=== PATIENT | female | born 1965 | race Caucasian/White ===

== ENCOUNTER → 2016-08-06 | Outpatient (CLI) | payer BC ==
[~2016-08-06] MED LIST: CHOL100010 PO; CLON0.5T3 PO; FLUT0.0529 NAE; OMEP40CA PO; WLL75 PO
--- NOTE | 2016-08-06 15:39 | DIAGNOSTIC IMAGING REPORT ---
MRI OF THE CERVICAL SPINE WITHOUT CONTRAST CLINICAL HISTORY: Severe headache. Neck pain. Cerebellar tonsillar ectopia. COMPARISON: MRI of the cervical spine September 20, 2015. TECHNIQUE: Utilizing a 1.5 Caroline magnet and dedicated coil, multiplanar, multiecho imaging of the cervical spine was performed without IV contrast. FINDINGS: Alignment of the cervical spine is anatomic. Vertebral body heights are maintained. There is no marrow replacement. There is no intracanalicular mass or fluid collection. Mild cerebellar tonsillar ectopia of 3 mm is unchanged since exam of September 20, 2015. Cervical cord signal and caliber are normal. C2-C3: Central canal and neural foramen are patent. C3-C4: There is minimal disc bulge. The central canal and the neural foramen are patent. C4-C5: There is mild disc bulge. There is minimal narrowing of the central canal. The neural foramen are patent. C5-C6: There is mild disc bulge with osteophyte. There is mild narrowing of the central canal. This is unchanged. The neural foramen are patent. C6-C7: The central canal and neural foramen are patent. C7-T1: The central canal and neural foramen are patent. IMPRESSION: 1. No change in mild cerebellar tonsillar ectopia since exam of September 20, 2015. The findings do not meet criteria for a Chiari 1 malformation. 2. Normal cervical cord signal and caliber. 3. No change in mild multilevel degenerative changes of the cervical spine. Electronically signed by: Peter Nieves M.D. 08/06/2016 3:38 PM Dictated Date/Time: 08/06/2016 3:21 PM
== END | disposition home or self-care (01) ==
LOC: C.MRIBC 14:24
PROVIDERS: ATTEND Psychiatry & Neurology Neurology
DX: M54.2 Cervicalgia (principal); M54.16 Radiculopathy, lumbar region

== ENCOUNTER → 2016-09-17 | Outpatient (CLI) | payer BC ==
[~2016-09-17] MED LIST changes: +BIOT10TA2 PO; +CHOL1000 PO; +CINN500C13 PO; +DTR/5 PO; +FLUT0.15 NAE; +HYDR25CA PO; +METH500T37 PO; +MISCCAP80 PO; +MULT-506 PO; +OMEG10007 PO; +PRLSR20 PO; +TRAM-10 PO; +azo PO
--- NOTE | 2016-09-17 09:40 | DIAGNOSTIC IMAGING REPORT ---
LEFT HAND MIN 3 VIEWS ROUTINE CLINICAL HISTORY: R76.8 Elevated antinuclear antibody (DINO) [id number] hypermobility COMPARISON: None. DISCUSSION: There is minimal periarticular osteopenia. No fractures are visualized. No bony erosions are visualized IMPRESSION: Minimal periarticular osteopenia. No fractures. No erosive changes. Electronically signed by: Jenaro Mitchell M.D. 09/17/2016 9:38 AM Dictated Date/Time: 09/17/2016 9:33 AM
--- NOTE | 2016-09-17 09:49 | DIAGNOSTIC IMAGING REPORT ---
RIGHT HAND 3 VIEWS HISTORY: R76.8 Elevated antinuclear antibody (DINO) [id number] Hypermobil Right COMPARISON: None. FINDINGS: Minimal periarticular osteopenia. No erosions identified. No fracture or dislocation. Cartilage spaces are maintained for age. Soft tissues are unremarkable. No radiopaque foreign bodies. IMPRESSION: Minimal periarticular osteopenia. No erosions. Electronically signed by: Ramses Jordan M.D. 09/17/2016 9:48 AM Dictated Date/Time: 09/17/2016 9:47 AM
== END | disposition home or self-care (01) ==
LOC: C.RAD1850 09:17
PROVIDERS: ATTEND Internal Medicine Rheumatology
DX: I73.00 Raynaud's syndrome without gangrene (principal); M25.50 Pain in unspecified joint; R76.8 Other specified abnormal immunological findings in serum

== ENCOUNTER → 2016-10-02 | Outpatient (CLI) | payer BC | END | disposition home or self-care (01) | LOC: C.LABSPEC 15:27 | PROVIDERS: ATTEND Nurse Practitioner Family | DX: R30.0 Dysuria (principal) ==

== ENCOUNTER → 2016-10-28 | Outpatient (CLI) | payer BC | END | disposition home or self-care (01) | LOC: C.LABSPEC 16:59 | PROVIDERS: ATTEND Urology | DX: N39.0 Urinary tract infection, site not specified (principal) ==

== ENCOUNTER → 2016-11-14 | Outpatient (CLI) | payer BC ==
[~2016-11-14] MED LIST changes: -BIOT10TA2 PO; -CHOL1000 PO; -CINN500C13 PO; -DTR/5 PO; -FLUT0.15 NAE; -HYDR25CA PO; -METH500T37 PO; -MISCCAP80 PO; -MULT-506 PO; -OMEG10007 PO; -PRLSR20 PO; -TRAM-10 PO; -azo PO
[2016-11-14 10:05] LABS: PFT COL EPI 82 SECONDS (80-184)
== END | disposition home or self-care (01) ==
LOC: C.LAB 08:55
DX: D68.9 Coagulation defect, unspecified (principal); E83.52 Hypercalcemia

== ENCOUNTER → 2016-11-28 | Outpatient (CLI) | payer BC ==
--- NOTE | 2016-11-28 12:17 | MAMMOGRAPHY REPORT ---
BILATERAL DIGITAL SCREENING MAMMOGRAM TOMOSYNTHESIS WITH CAD: 11/28/2016 CLINICAL HISTORY: Routine screening. TECHNIQUE: Bilateral breast tomosynthesis in addition to standard 2D mammography was performed. Curre nt study was also evaluated with a Computer Aided Detection (CAD) system. COMPARISON: Comparison is made to exams dated: 11/27/2015 mammogram, 11/24/2014 mammogram, 11/18/2013 m ammogram, 11/16/2012 mammogram, 11/03/2011 mammogram, and 10/28/2010 mammogram - [facility]. BREAST COMPOSITION: The tissue of both breasts is heterogeneously dense, which may obscure small mas ses. FINDINGS: There is an asymmetry in the far superior right breast on the MLO view that does not defin itely have masslike features on the corresponding tomosynthesis images. However, additional spot com pression tomosynthesis views and possibly ultrasound are recommended. There are diffuse bilateral benign-appearing round and punctate microcalcifications. No other suspic ious mass, architectural distortion or cluster of microcalcifications is seen. IMPRESSION: ACR BI-RADS CATEGORY 0: INCOMPLETE EVALUATION: NEED ADDITIONAL IMAGING EVALUATION The asymmetry in the far superior right breast on the MLO view needs additional evaluation. The patient will be called to schedule an appointment. Approximately 10% of breast cancers are not detected with mammography. A negative mammographic report should not delay biopsy if a clinically suggestive mass is present. Raina Figueredo M.D. ay/:11/28/2016 10:29:11 Photoresist Contact Printer: Melanie KISER(R)(M), [facility] letter sent: Addl Imaging 0 BI-RADS Code: ACR BI-RADS Category 0: Incomplete Evaluation: Need Additional Imaging Evaluation
== END | disposition home or self-care (01) ==
LOC: C.MAMM 09:03
PROVIDERS: ATTEND Obstetrics & Gynecology
DX: Z12.31 Encounter for screening mammogram for malignant neoplasm of breast (principal); R92.8 Other abnormal and inconclusive findings on diagnostic imaging of breast

== ENCOUNTER → 2016-12-09 | Outpatient (CLI) | payer BC ==
--- NOTE | 2016-12-09 13:08 | MAMMOGRAPHY REPORT ---
UNILATERAL RIGHT DIGITAL DIAGNOSTIC MAMMOGRAM TOMOSYNTHESIS AND TARGETED RIGHT ULTRASOUND: 12/09/2016 CLINICAL HISTORY: 50-year-old woman called back from screening mammography for nodular asymmetry in t he superior right breast on the MLO view. Family history of breast cancer = mother. TECHNIQUE: Spot compression right MLO 2-D and tomosynthesis, right exaggerated lateral CC 2-D and abebe osynthesis images were obtained. COMPARISON: Comparison is made to exams dated: 11/28/2016 mammogram, 11/27/2015 mammogram, 11/24/2014 m ammogram, 11/18/2013 mammogram, 11/16/2012 mammogram, and 11/03/2011 mammogram - [facility]ter. BREAST COMPOSITION: The tissue of the right breast is heterogeneously dense, which may obscure small masses. FINDINGS: There is effacement of the nodularity in the superior right breast on the spot compression MLO view. No corresponding mass or architectural distortion on the tomosynthesis images. The parenc hymal pattern on the 2-D overlay view is very similar to multiple prior mammograms including the 2014 , 2011 and 2010 mammograms, suggesting normal overlapping tissue. No suspicious mass or focal area o f architectural distortion is seen on the exaggerated lateral right CC view. Further evaluation with ultrasound was performed. Targeted ultrasound was performed in the superior right breast. Incidental note is made of 2 benign simple cysts. The first in the 12:00 right breast, 1 cm from the nipple measures 2.6 x 3.3 x 2.7 mm. The second in the 10:00 periareolar right breast measures 5.6 x 6.2 x 4.0 mm. No suspicious solid mass is identified. A morphologically normal lymph node is seen in the 10:00 right breast, 5 cm from the nipple, correlating with a stable mammographic mass. IMPRESSION: ACR BI-RADS CATEGORY 2: BENIGN, TARGETED ULTRASOUND ACR BI-RADS CATEGORY 2: BENIGN Effacement of the nodularity in the superior right breast on the MLO view, and no suspicious sonograp hic correlate. Incidental note is made of 2 simple cysts and a benign lymph node visualized in the s uperior right breast on ultrasound. There is no mammographic or targeted sonographic evidence of mal ignancy. Return to annual mammogram screening schedule is recommended. The patient has been verball y notified of the results. Approximately 10% of breast cancers are not detected with mammography. A negative mammographic report should not delay biopsy if a clinically suggestive mass is present. Raina Figueredo M.D. ay/:12/09/2016 11:31:41 [employer]borne Mission Systems Superintendent: Nora QUINTANILLA)(Rui), [facility] letter sent: Normal 1/2 BI-RADS Code: ACR BI-RADS Category 2: Benign Ultrasound BI-RADS: ACR BI-RADS Category 2: Benign
== END | disposition home or self-care (01) ==
LOC: C.MAMM 09:21
PROVIDERS: ATTEND Obstetrics & Gynecology
DX: R92.8 Other abnormal and inconclusive findings on diagnostic imaging of breast (principal); N64.89 Other specified disorders of breast

== ENCOUNTER → 2017-02-09 | Outpatient (CLI) | payer BC | END | disposition home or self-care (01) | LOC: C.LABSPEC 17:08 | PROVIDERS: ATTEND Urology | DX: R39.9 Unspecified symptoms and signs involving the genitourinary system (principal); R35.0 Frequency of micturition ==

== ENCOUNTER → 2017-02-11 | Outpatient (CLI) | payer BC | END | disposition home or self-care (01) | LOC: C.LAB 16:54 | PROVIDERS: ATTEND Nurse Practitioner Adult Health | DX: N39.0 Urinary tract infection, site not specified (principal); R35.0 Frequency of micturition ==

== ENCOUNTER 2017-03-10 05:18 | Inpatient (IN) | payer BC ==
--- NOTE | 2017-02-26 10:18 | PAT Medication Instructions ---
Service Date Feb 26, 2017. Current Home Medication List Biotin (Biotin), 100 MG PO QAM Bupropion HCl (Bupropion HCl), 100 MG PO BID Cholecalciferol (Vitamin D3), 1 TAB PO BID Cinnamon (Cinnamon Extract), 2 CAP PO QAM Clonazepam (Klonopin), 2 TAB PO HS Clonazepam (Klonopin), 0.5 TAB PO NOON Fish Oil (Austin-3), 1 CAP PO BID Fluticasone Propionate (Nasal) (Flonase Allergy Relief), 1 DOSE JUAN CARLOS UD PRN for SINUS CONGESTION Hydroxyzine Pamoate (Vistaril), 1 CAP PO HS Methocarbamol (Robaxin), 500 MG PO UD PRN for Pain Multivitamin (Multivitamin), 1 TAB PO QAM Omeprazole (Prilosec), 40 MG PO QAM Oxybutynin Chloride (Ditropan), 5 MG PO HS Tramadol (Ultram), 50 MG PO UD PRN for PAIN/MIGRAINES Medication Instructions For Your Scheduled Surgery - Hold the following medications starting tomorrow (02/27): Cinnamon (Cinnamon Extract), 2 CAP PO QAM Fish Oil (Austin-3), 1 CAP PO BID - Hold the following medications the morning of surgery: Multivitamin (Multivitamin), 1 TAB PO QAM Biotin (Biotin), 100 MG PO QAM Cholecalciferol (Vitamin D3), 1 TAB PO BID Methocarbamol (Robaxin), 500 MG PO UD PRN for Pain - Take the following medications the morning of surgery with a sip of water: Tramadol (Ultram), 50 MG PO UD PRN for PAIN/MIGRAINES(if needed) Fluticasone Propionate (Nasal) (Flonase Allergy Relief), 1 DOSE JUAN CARLOS UD PRN for SINUS CONGESTION (if needed) Clonazepam (Klonopin), 0.5 TAB PO NOON Bupropion HCl (Bupropion HCl), 100 MG PO BID Omeprazole (Prilosec), 40 MG PO QAM - Take the following medications as scheduled the night before surgery: Tramadol (Ultram), 50 MG PO UD PRN for PAIN/MIGRAINES (if needed) Oxybutynin Chloride (Ditropan), 5 MG PO HS Clonazepam (Klonopin), 2 TAB PO HS Fluticasone Propionate (Nasal) (Flonase Allergy Relief), 1 DOSE JUAN CARLOS UD PRN for SINUS CONGESTION (if needed) Bupropion HCl (Bupropion HCl), 100 MG PO BID Hydroxyzine Pamoate (Vistaril), 1 CAP PO HS Methocarbamol (Robaxin), 500 MG PO UD PRN for Pain (if needed) Cholecalciferol (Vitamin D3), 1 TAB PO BID If you have any questions please call us at [phone] or [phone] or [phone]
[2017-02-26 11:22] LABS: BASO % 0.8 %; BASO ABS # 0.03 K/uL (0-0.2); COMPLETE YES; EOS % 2.3 %; HEMATOCRIT 39.3 % (37-47); IG% 0.3 %; LYMPH % 39.9 %; LYMPH ABS # 1.58 K/uL (1.2-3.4); MEAN CELL VOLUME 87.3 fL (80-100); MEAN CORPUSCULAR HEMOGLOBIN 28.9 pg (25-34); MEAN CORPUSCULAR HGB CONC 33.1 g/dl (32-36); MEAN PLATELET VOLUME 10.8 fL (7.4-10.4); MONO % 7.8 %; NEUT % 48.9 %; PLATELET COUNT 296 K/uL (130-400); WHITE BLOOD COUNT 3.96 K/uL (4.8-10.8)
[2017-02-26 11:32] LABS: PROTHROMBIN TIME (PATIENT) 10.8 SECONDS (9.0-12.0)
--- NOTE | 2017-03-02 13:53 | HISTORY & PHYSICAL EXAMINATION ---
DATE OF ADMISSION: 03/10/2017 HISTORY OF PRESENT ILLNESS: Ely is a 51-year-old white female who stands 5 feet 7 inches tall and weighs 130 pounds. Ely was referred to my office a number of years ago to treat a rather significant dental facial abnormality. She has a class 2 deep bite. As a result of this, her lower teeth were impinging into the palate. She had a great deal of difficulty with eating and chewing because of the mouth positioning of the teeth. She constantly bit her lips and the mucosal tissue of her cheeks and tongue. She sought an orthodontic opinion and went to Dr. Dragan Kong an envelope sealing machine operator in [place] for evaluation. Dr. Kong noted right away that this is a skeletal dental alveolar problem and told Ely that in order to correct her problem she will need a combination of orthodontics and orthognathic surgery. It is at this time that she is ready for the orthognathic surgical procedure. Dr. Kong set her teeth into a very nice relationship. He leveled and aligned the teeth, made the appropriate spaces, opened the bite up orthodontically to allow me to perform a bilateral sagittal split osteotomy to advance the mandible approximately 7 mm to gain a very nice class 1 dental occlusion. This will greatly help her malocclusion and get rid of the deep bite and the inability for her to eat and chew foods properly. I reviewed with Ely all the risks and complications of the surgical procedure which include but are not limited to the following; pain, swelling, infection, bleeding, reaction to the metal screws and plates that will be used for the surgical procedures, bleeding, paresthesia to the inferior alveolar nerve that could be permanent or transient, the need to remove the screws in the future if they are causing a reaction, pain and discomfort in the temporomandibular joint secondary to the stretching of the ligaments due to the advancement surgery. She understands the surgery will be performed at the [facility] in the operating room and then she will spend the first night in the intensive care unit. Depending on how she does, she may be discharged the following morning or later that afternoon. She understands she must maintain proper oral hygiene care and need to follow up with both me and the envelope sealing machine operator. She also understands that after the surgery in about 6 weeks, she will return to the envelope sealing machine operator where follow up orthodontic care will be rendered. She also understands that she will need a sinus elevation and implant placement in tooth #14 area sometime in the future once the orthodontics is complete. Overall, I find Ely to be a very inquisitive lady who is very interested in the treatment that she is going to undergo. I spent a great deal of time with her reviewing each of her questions and we also had spent a great deal of time making sure that the metals that we are going to be using such as the titanium screws and the future titanium implants will not cause any reaction. I have worked with her marine steam fitter and they have developed skin testing and to the best of our knowledge based upon the skin testing, the metals that we are going to implanting in her bones will not cause a reaction. She does not have any allergic reactions to these particular metals. With that said, we have scheduled surgery for the February at [facility] under general anesthesia. She does understand all the risks and complications of the surgery and the potential reactions that could occur. She has had a great deal of time to discuss this with me via phone, email and personal. She has signed the consent form and I gave her a copy of the consent form for her own use. We have reports from her marine steam fitter stating the fact that the metals were deep tested and according to their testing she does not seem to have any reaction to the titanium alloy metal that we will be using in both the implant as well as the orthognathic surgical screws. We will obviously avoid all other metallic implantable material that could cause reactions. The patient had a great deal of time to think about the surgery and read the risks, complications plus she has done extensive research in reading the internet and asking questions to many patients. I feel she is well educated and has a good understanding of the need for the surgery and the expected outcome. I feel that she is a very well informed patient. It is at this time that I am clearing her medically to undergo the orthognathic surgical procedure. PAST MEDICAL HISTORY: Essentially noncontributory. She gives no history of any type of significant heart problems but she does have at time some palpitations and was told that she has high cholesterol. She does state that she has low blood pressure and obviously we will be aware of this during the surgery. The patient gives no history of any type of lung problems and as a matter of fact has good expansion of the lungs with bilateral clear respiratory sounds. The patient has had an echocardiogram at [facility] in the past, she has had stress test with [facility]'s in the past and she has had multiple EKGs, all of them again show her bradycardia, but nothing of any significance. The patient states that she does have some dyspnea on exertion on running, walking up hills, or mowing or shoveling snow and she is not sure if this is just due to under conditioning or actually cardiac problems. Based upon the electrocardiogram and echocardiogram and stress test, I feel it is more under conditioning. The patient states that at time she feels anxious and depressed. She does get migraines occasionally. 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 She has had extensive workup of her great vessels and there does not seem to be any type of valvular or aneurysm type problems or weakness in the great vessels. 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 The patient gives no history of any type of diabetes, thyroid disease or need for insulin therapy. She states at time that she gets some abnormal bruising, but she has no history of any type of blood clotting or any type of endocrine or coagulation problems. The patient does state that she has some temporomandibular joint problems and I attribute this to the significant malocclusion due to the fact that she has to protrude her jaw forward just to allow for proper jaw function. In addition, the patient does have neck and upper back problems and arthritis in her back. She requested that we would be very careful when we position her to prevent excessive pressure on her back and upper neck to prevent stretching. Of interest is that her temporomandibular joint dysfunction, today was very normal as she was able to open without any clicks, pops or deviations to almost 45 mm. The patient does not smoke and she does not use any illicit drugs. She does not drink alcohol. The patient gives no history of any type of liver or kidney problems. She gives no history of any type of cancer. She gives no history of any type of anesthetic complications and we will be very careful with the intubation as she is quite concerned about intubation harming her trachea. We will discuss this with the anesthesiologist at that time. The patient has had a number of surgeries in the past, she has had ablation for her what sounds like a rapid heartbeat due to paroxysmal tachycardia and she has had hysterectomy. ALLERGIES: SHE STATES THAT SHE IS ALLERGIC TO A NUMBER OF METALS SUCH NICKEL WHICH CAUSES A RASH, ITCHING AND SORENESS. SHE HAS AN ALLERGIC REACTION TO LASIX, SULFA DRUGS, CIPRO, REMERON AND GOLD PRODUCTS. A complete list and allergy test results are in her chart There is the list of her medications and allergies that were attached to the chart. There are 12 of them and they include Wellbutrin, clonazepam, alprazolam and I will have this available for the anesthesiologist and nurse injection specialist to review. There does not seem anything on this with that would adversely affect which would complicate Ely's surgery. I am going to be aware of all of her allergies and we will avoid these. I have stated that all of the metals that we are planning to use such as the titanium screws were tested via her marine steam fitter for trace metals and there does not seem to be any type of cross reaction that would cause an acute allergic reaction. I reviewed this with Ely at numerous occasions, both personally, the email and phone calls. I do feel that at this time she is capable of undergoing the surgical procedure as planned. She understands that I am not able to do the sinus elevation at the hospital and we will do this at a later date. PHYSICAL EXAMINATION: GENERAL: The physical examination was performed by me and found to be within normal limits. The patient gives no history of any type of head trauma, loss of consciousness, dizziness, or vertigo. EARS: Within normal limits. External auditory canals are clear and no pathology noted. EYES: Pupils are reactive to light and accommodation. Sclera is clear. Good range of motion. No visual disturbances. NOSE: Midline. Septum is midline. No polyps or deviations. No chronic sinusitis noted. NECK: Supple, full range of motion. Good extension and flexation and good range of motion. The patient does state that she has some arthritic changes, but she does have relatively good range of motion which will allow an oral intubation. COR: Normal sinus rhythm without any murmurs or gallops. ABDOMEN: Soft. No organomegaly or rebound phenomena noted. LUNGS: Clear to auscultation bilateral symmetric, good expansion. SKIN: Clear. Free of any type of pathology. It is dry. There are no ulcers or rashes present. ORTHOPEDIC: Grossly intact. NEUROLOGIC: Grossly intact. SOCIAL HISTORY: The patient lives with her family in the [place], [place]. She is 51 years old. She works at [employer]. She is 5 feet 7 inches tall and weighs 130 pounds. Routine laboratory studies are pending and we do not have them as of yet. Routine x-rays and CT scanning were all found to be within normal limits for the proposed surgical procedure. I feel that she will be a good candidate for the orthognathic surgery. We will follow her very closely. We will need to manage both her oral hygiene, her postoperative care and help with her anxiety and apprehension both during the hospital visit and postoperatively as well. I feel that Ely has come full teller and has a good understanding of the surgery and is anxious to get the surgery done and move on with her life. AUGIE
[2017-03-10] VITALS (12 sets, daily range): BP systolic 105–123; BP diastolic 57–73; PULSE 65–86; TEMP 36.6–36.9; O2SAT 95–99; Ht 170.2 cm; Wt 57.8 kg
[~2017-03-10] VITALS: Ht 170.2 cm; Wt 57.8 kg
[~2017-03-10 05:18] MED LIST changes: +BIOT10TA2 PO; +CHOL1000 PO; -CHOL100010 PO; +CINN500C13 PO; +DTR/5 PO; -FLUT0.0529 NAE; +FLUT0.15 NAE; +HYDR25CA PO; +METH500T37 PO; +MULT-506 PO; +OMEG10007 PO; -OMEP40CA PO; +PRLSR20 PO; +TRAM-10 PO
[2017-03-10] MEDS ORDERED: MISCCAP80 PO (05:47)
[2017-03-10] MEDS ORDERED: azo PO (05:48)
[2017-03-10] MEDS ORDERED: CEFAZOLIN 1000MG IV PUSH 5 ML IV SCH (06:00)
[2017-03-10] MEDS ORDERED: LACTATED RINGER'S 1000ML 1,000 ML IV SCH ×2 (06:00)
[2017-03-10] MEDS ORDERED: LIDOCAINE HCL 2% JELLY 30 ML TUBE EXT ONE (06:45)
[2017-03-10] MEDS ORDERED: OXYMETAZOLINE HCL 0.05% NA SPR 15 ML BTL ONE (06:45)
[2017-03-10] MEDS ORDERED: DEXAMETHASONE SOD INJ 4 MG/ML VIAL ONE (06:53)
[2017-03-10] MEDS ORDERED: GLYCOPYRROLATE INJ 0.2 MG/ML VIAL ONE (06:53)
[2017-03-10] MEDS ORDERED: FENTANYL CITRATE INJ 50 MCG/1 ML 2 ML VIAL ONE ×2 (06:53→10:08)
[2017-03-10] MEDS ORDERED: MIDAZOLAM HCL 1 MG/ML 2ML VIAL ONE (06:53)
[2017-03-10] MEDS ORDERED: ONDANSETRON INJ 2 MG/ML 2 ML VIAL ONE ×2 (06:53→08:48)
[2017-03-10] MEDS ORDERED: NEOSTIGMINE METHYLSULFATE 5 MG/5 ML SYR ONE (06:53)
[2017-03-10] MEDS ORDERED: PROPOFOL IV EMULSION 10 MG/ML 20 ML VIAL IV ONE (06:53)
[2017-03-10] MEDS ORDERED: LIDOCAINE HCL 2% 2 ML VIAL (20MG/ML) ONE (06:53)
[2017-03-10] MEDS ORDERED: CHLORHEXIDINE GLUCONATE 0.12% 15 ML UDP ONE ×2 (06:55→07:02)
[2017-03-10] MEDS ORDERED: TRIAMCINOLONE ACET 0.1% OINT 15 GM TUBE ONE (06:55)
[2017-03-10] MEDS ORDERED: BUPIVACAINE/EPINEPHRINE 0.5% 1:200,000 1.8 ML CARP ONE (06:59)
[2017-03-10] MEDS ORDERED: SCOPOLAMINE 1.5 MG TDSY TD ONE (07:03)
--- NOTE | 2017-03-10 07:05 | History & Physical Bridge Note ---
H&P Re-Evaluation Bridge Note: I have examined the patient, reviewed the History & Physical and in the interval since the performance of the History & Physical I have noted the following changes of clinical significance: No changes noted
[2017-03-10] MEDS ORDERED: OXYMETAZOLINE HCL 0.05% NA SPR 15 ML BTL PRN (07:15)
[2017-03-10] MEDS ORDERED: ONDANSETRON INJ 2 MG/ML 2 ML VIAL IV PRN ×2 (07:15→09:15)
[2017-03-10] MEDS ORDERED: HYDROCODONE/APAP 2.5MG/108MG ELIX 5 ML UDP PO PRN (07:15)
[2017-03-10] MEDS ORDERED: MoRPHine SULFATE 2 MG/ML CARP IV PRN (07:15)
[2017-03-10] MEDS ORDERED: LORAZEPAM INJ 1 MG in SYRINGE 0.5 ML IV PRN (07:15)
[2017-03-10] MEDS ORDERED: SCOPOLAMINE 1.5 MG TDSY TD STA (07:18)
[2017-03-10] MEDS ORDERED: ROCURONIUM BROMIDE 10 MG/ML 5 ML VIAL IV ONE (08:48)
[2017-03-10] MEDS ORDERED: METOCLOPRAMIDE HCL INJ 5 MG/ML 2 ML VIAL ONE (08:48)
[2017-03-10] MEDS ORDERED: CHLORHEXIDINE GLUCONATE 0.12% 480 ML MT SCH (09:00)
[2017-03-10] MEDS ORDERED: KETOROLAC TROMETHAMINE 30 MG/ML VIAL IV. PRN (09:15)
[2017-03-10] MEDS ORDERED: PROMETHAZINE HCL INJ 6.25 MG in SODIUM CHLORIDE 0.9% 50ML 50 ML IV PRN (09:15)
[2017-03-10] MEDS ORDERED: FENTANYL CITRATE INJ 50 MCG/1 ML 2 ML VIAL IV PRN (09:15)
[2017-03-10] MEDS ORDERED: ATROPINE SULFATE 0.1 MG/ML 5ML SYR IV PRN (09:15)
[2017-03-10] MEDS ORDERED: KETOROLAC TROMETHAMINE 30 MG/ML VIAL ONE (10:07)
--- NOTE | 2017-03-10 10:23 | [facility] Post Operative Brief Note ---
Immediate Operative Summary Operative Date Mar 10, 2017. Pre-Operative Diagnosis Mandibular Retrognathism Post-Operative Diagnosis same as pre-operative Procedure(s) Performed Mandibular Sagittal Split to Advance Lower Jaw with Direct Fixation Surgeon Dr. Pavan Arzola Hourly Shift Manager Surgeon(s) Corina Dai RN, CONTINUOUS MINING OPERATOR Estimated Blood Loss 25 ml Findings very hypoplastic lower jaw Specimens none per surgeon Drains none Anesthesia Ga and Local Complication(s) None Disposition Surgical ICU
--- NOTE | 2017-03-10 10:24 | DIAGNOSTIC IMAGING REPORT ---
MANDIBLE < 4 VIEWS CLINICAL HISTORY: Status post Orthognathic Surgery AP Mandibular and lat Jaw postoperative evaluation COMPARISON STUDY: None FINDINGS: Findings consistent with mandibular osteotomies and screw fixation. Alignment appears to be anatomic. IMPRESSION: Anatomic alignment status post bilateral mandibular osteotomies and screw fixation The above report was generated using voice recognition software. It may contain grammatical, syntax or spelling errors. Electronically signed by: Lucian Leon M.D. 03/10/2017 10:22 AM Dictated Date/Time: 03/10/2017 10:20 AM
[2017-03-10] MEDS ORDERED: LARYING-O-JET KIT (LTA) ONE ×2 (11:09)
--- NOTE | 2017-03-10 11:15 | Anesthesiology Progress Note ---
Anesthesia Post Op Note Date & Time Mar 10, 2017 at 11:15 Vital Signs Pain Intensity: 4 Vital Signs Past 12 Hours Date Time Temp Pulse Resp B/P (MAP) Pulse Ox O2 Delivery O2 Flow Rate FiO2 03/10/17 11:11 130/71 03/10/17 11:09 77 16 100 03/10/17 11:09 77 16 03/10/17 11:06 128/72 03/10/17 11:04 74 16 100 03/10/17 11:04 74 16 03/10/17 11:01 132/74 03/10/17 10:59 65 16 03/10/17 10:59 65 16 99 03/10/17 10:56 128/73 03/10/17 10:54 75 16 03/10/17 10:54 75 16 100 03/10/17 10:51 36.1 03/10/17 10:51 136/72 03/10/17 10:49 70 11 99 03/10/17 10:49 70 11 03/10/17 10:46 127/70 03/10/17 10:44 69 16 03/10/17 10:44 69 16 100 03/10/17 10:43 71 16 03/10/17 10:43 71 16 99 03/10/17 10:41 136/69 03/10/17 10:38 78 16 99 03/10/17 10:38 77 16 03/10/17 10:36 145/77 03/10/17 10:33 75 12 99 03/10/17 10:33 76 12 03/10/17 10:31 129/90 03/10/17 10:28 77 11 03/10/17 10:28 77 11 100 03/10/17 10:26 134/76 03/10/17 10:23 67 16 99 03/10/17 10:23 66 16 03/10/17 10:21 143/75 03/10/17 10:18 71 16 03/10/17 10:18 71 16 100 03/10/17 10:16 142/77 03/10/17 10:13 76 18 03/10/17 10:13 75 18 99 03/10/17 10:11 144/81 03/10/17 10:08 80 18 03/10/17 10:08 80 18 100 03/10/17 10:06 138/83 03/10/17 10:03 68 16 03/10/17 10:03 68 16 97 03/10/17 10:01 140/74 03/10/17 09:59 138/86 03/10/17 09:58 85 03/10/17 09:58 36.1 70 16 140/74 98 Oxymask 10 03/10/17 09:58 85 100 03/10/17 05:54 36.9 65 18 119/57 95 Room Air Notes Mental Status: alert / awake / arousable, participated in evaluation Pt Amnestic to Procedure: Yes Nausea / Vomiting: adequately controlled Pain: adequately controlled Airway Patency, RR, SpO2: stable & adequate BP & HR: stable & adequate Hydration State: stable & adequate Anesthetic Complications: no major complications apparent
[2017-03-10] MEDS ORDERED: D5W AND 1/2NSS + 20MEQ KCL 1,000 ML IV SCH (12:00)
[2017-03-10] MEDS: DEXAMETHASONE INJ 6 MG in SYRINGE 0 ML IV SCH ×2 (12:28→17:31)
--- NOTE | 2017-03-10 15:59 | Critical Care Consultation ---
Critical Care Consultation Date of Consultation: Resident Physician Supervision Note: I was present with Dr. Richmond Talley during the history and exam. I discussed the case with the resident and agree with the findings and plan as documented in the note. In summary, the patient is a 51-year-old female with Roberto-Danlos syndrome, Chiari malformation of brainstem, interstitial cystitis difficulty eating and chewing because of the mouth positioning of her teeth. Patient underwent elective mandibular sagittal split to advanced lower jaw with direct fixation. Patient was transferred postoperatively to surgical intensive care unit for airway monitoring. Intraoperative course was uneventful. On my physical examination patient complains of jaw pain. Otherwise, hemodynamics are acceptable, adequate peripheral perfusion, clear breath sounds, abdomen is soft, neurologically patient is intact. We'll continue monitoring in the ICU for airway protection. We'll continue with Decadron IV. Acute pain management with Darvocet, Toradol, morphine on as needed basis. We will use oxymetazoline nasal spray, Zofran for nausea. Otherwise, saturation is good on room air. Decadron 4 decreased swelling postoperatively. Preoperative antibiotics with cefazolin. Renal function is adequate, we'll continue with IV fluids. DVT prophylaxis with SCDs. Documented By: Alta Carey Mar 10, 2017. Attending Physician: Pavan Arzola D.M.D. Reason for Consultation: Critical care monitoring s/p jaw surgery History of Present Illness 51 year old female being monitored in the ICU s/p mandibular saggital split to advance lower jaw w/direct fixation Patient was seen by Dr. Kong as she was having difficulty eating and chewing because of the mouth positioning of her teeth. Dr. Kong noted that she had a skeletal dental alveolar problem and told the patient she had to go see an orthognathic surgical procedure. Before going to see Dr. Dariusz Puente set the patients teeth with braces. Patient then saw Dr. Arzola and was organized to have a mandibular saggital split to advance the lower jaw with direct fixation. She had the surgery this morning and it went successfully. The patient is currently being monitored in the ICU post operatively. Her only current complaint is jaw pain as well as the urge to urinate. Past Medical/Surgical History Roberto Danlos Syndrome Chiari Malformation at brainstem TMJ Back Arthritis Interstitial cystitis Family History Cancer Diabetes mellitus Heart disease Hypertension Social History Smoking Status: Former Smoker Marital Status: Housing Status: lives with significant other Occupation Status: employed Allergies Coded Allergies: Sulfa Drugs (Verified Allergy, Severe, THROAT SWELLING, 03/10/17) Mirtazapine (Verified Allergy, Intermediate, UNKNOWN, 03/10/17) Sulfamethoxazole (Verified Allergy, Mild, CAN'T TAKE SULFA DRUGS, 03/10/17 ) Ciprofloxacin (Verified Allergy, Unknown, "throat closed up", 03/10/17) Underwood (Verified Allergy, Unknown, THIS IS A METAL ALLERGY TO COBALT/ RASH , 03/10/17) Gold (Verified Allergy, Unknown, RASH, 03/10/17) Latex1 -Allergic Contact Dermititis (Verified Allergy, Unknown, rash, ) Neomycin (Verified Allergy, Unknown, RASH/ITCHY, 03/10/17) Nickel (Verified Allergy, Unknown, rash, 03/10/17) Sulfamethoxazole w/Trimethoprim (Verified Allergy, Unknown, "throat closed up", 03/10/17) Thimerosal (Verified Allergy, Unknown, RASH/ITCHY, 03/10/17) Trimethoprim (Verified Allergy, Unknown, UNKNOWN, 03/10/17) Zolpidem (Verified Adverse Reaction, Intermediate, SLEEP WALKING, 03/10/17 ) Scopolamine (Verified Adverse Reaction, Unknown, dizziness, 03/10/17) Home Medications Scheduled Biotin (Biotin), 100 MG PO QAM Bupropion HCl (Bupropion HCl), 100 MG PO BID Cholecalciferol (Vitamin D3), 1 TAB PO BID Cinnamon (Cinnamon Extract), 2 CAP PO QAM Clonazepam (Klonopin), 2 TAB PO HS Clonazepam (Klonopin), 0.5 TAB PO NOON Fish Oil ([place]-3), 1 CAP PO BID Hydroxyzine Pamoate (Vistaril), 1 CAP PO HS Multivitamin (Multivitamin), 1 TAB PO QAM Omeprazole (Prilosec), 40 MG PO QAM Oxybutynin Chloride (Ditropan), 5 MG PO HS Probiotic Product (Probiotic), 1 CAP PO HS [azo], 1 TAB PO BID Scheduled PRN Fluticasone Propionate (Nasal) (Flonase Allergy Relief), 1 DOSE JUAN CARLOS UD PRN for SINUS CONGESTION Methocarbamol (Robaxin), 500 MG PO UD PRN for Pain Tramadol (Ultram), 50 MG PO UD PRN for PAIN/MIGRAINES Current Inpatient Medications Current Inpatient Medications Medications (Trade) Dose Ordered Sig/Alicia Route Start Time Stop Time Status Last Admin Dose Admin Miscellaneous (Remove Transderm-Scop Patch) 1 ea Q72H N/A 03/13/17 07:00 03/13/17 07:01 Potassium Chloride/Dextrose/ Sod Cl 1,000 ml @ 100 mls/hr Q10H IV 03/10/17 12:00 04/09/17 07:05 03/10/17 12:28 100 MLS/HR Ketorolac Tromethamine (Toradol Inj) 30 mg Q6 IV. 03/10/17 18:00 03/15/17 11:59 Dexamethasone Sodium Phosphate 6 mg/Syringe 1.5 ml @ 1 mls/min Q6 IV 03/10/17 12:00 04/09/17 11:59 03/10/17 12:28 1 MLS/MIN Oxymetazoline HCl (Afrin 0.05% Nasal [place]) 2 sprays Q4H PRN NA 03/10/17 07:15 04/09/17 07:14 Ondansetron HCl (Zofran Inj) 4 mg Q6H PRN IV 03/10/17 07:15 04/09/17 07:14 Triamcinolone Acetonide (Kenalog 0.1% Oint) 1 appln HS EXT 03/10/17 21:00 04/09/17 20:59 Lorazepam 1 mg/ Syringe 1 ml @ 1 mls/min Q4H PRN IV 03/10/17 07:15 04/09/17 07:14 Chlorhexidine Gluconate (Peridex Oral Soln) 15 ml BID MT 03/10/17 09:00 04/09/17 08:59 Acetaminophen/ Hydrocodone Bitart (Lortab Elixir) 10 ml Q3H PRN PO 03/10/17 07:15 03/24/17 07:14 Morphine Sulfate (MoRPHine SULFATE INJ) 2 mg Q1H PRN IV 03/10/17 07:15 03/24/17 07:14 Cefazolin Sodium 1000 mg/Syringe 5 ml @ 100 mls/hr Q8H IV 03/10/17 16:00 03/11/17 15:59 Review of Systems Constitutional: No fever, No chills, No sweats Eyes: No worsening of vision, No eye pain Respiratory: No cough, No sputum, No shortness of breath Cardiovascular: No chest pain, No edema, No palpitations Abdomen: No pain, No nausea, No vomiting Musculoskeletal: No swelling, No calf pain Genitourinary - Female: + dysuria, + urinary frequency, + urinary incontinence Neurologic: No numbness/tingling Hematologic / Lymphatic: No abnormal bleeding/bruising, No clotting problems Integumentary: No rash, No itch Physical Exam Date Time Temp Pulse Resp B/P (MAP) Pulse Ox O2 Delivery O2 Flow Rate FiO2 03/10/17 14:31 86 24 105/66 (79) 96 Room Air 03/10/17 14:16 75 11 108/64 (79) 95 Room Air 03/10/17 14:01 84 18 117/70 (86) 98 Room Air 03/10/17 13:46 81 13 122/64 (83) 99 Nasal Cannula 2.0 03/10/17 13:31 77 12 114/64 (81) 99 Nasal Cannula 2.0 03/10/17 13:16 79 12 116/65 (82) 99 Nasal Cannula 2.0 03/10/17 13:01 84 15 123/69 (87) 99 Nasal Cannula 2.0 03/10/17 12:46 79 16 123/61 (81) 99 Nasal Cannula 2.0 03/10/17 12:31 36.6 80 13 119/73 (88) 98 Nasal Cannula 2.0 03/10/17 11:17 74 17 03/10/17 11:17 74 17 100 03/10/17 11:16 125/79 03/10/17 11:12 75 16 03/10/17 11:12 75 16 100 03/10/17 11:11 130/71 03/10/17 11:09 77 16 100 03/10/17 11:09 77 16 03/10/17 11:06 128/72 03/10/17 11:04 74 16 100 03/10/17 11:04 74 16 03/10/17 11:01 132/74 03/10/17 10:59 65 16 03/10/17 10:59 65 16 99 03/10/17 10:56 128/73 03/10/17 10:54 75 16 03/10/17 10:54 75 16 100 03/10/17 10:51 36.1 03/10/17 10:51 136/72 03/10/17 10:49 70 11 99 03/10/17 10:49 70 11 03/10/17 10:46 127/70 03/10/17 10:44 69 16 03/10/17 10:44 69 16 100 03/10/17 10:43 71 16 03/10/17 10:43 71 16 99 03/10/17 10:41 136/69 03/10/17 10:38 78 16 99 03/10/17 10:38 77 16 03/10/17 10:36 145/77 03/10/17 10:33 75 12 99 03/10/17 10:33 76 12 03/10/17 10:31 129/90 03/10/17 10:28 77 11 03/10/17 10:28 77 11 100 03/10/17 10:26 134/76 03/10/17 10:23 67 16 99 03/10/17 10:23 66 16 03/10/17 10:21 143/75 03/10/17 10:18 71 16 03/10/17 10:18 71 16 100 03/10/17 10:16 142/77 03/10/17 10:13 76 18 03/10/17 10:13 75 18 99 03/10/17 10:11 144/81 03/10/17 10:08 80 18 03/10/17 10:08 80 18 100 03/10/17 10:06 138/83 03/10/17 10:03 68 16 03/10/17 10:03 68 16 97 03/10/17 10:01 140/74 03/10/17 09:59 138/86 03/10/17 09:58 85 03/10/17 09:58 36.1 70 16 140/74 98 Oxymask 10 03/10/17 09:58 85 100 03/10/17 05:54 36.9 65 18 119/57 95 Room Air General Appearance: WD/WN, no apparent distress, other (patient with inflattable head wrap for support) Eyes: PERRLA, EOMI ENT: other (patient wears braces) Respiratory: breath sounds normal, clear to percussion, no respiratory distress Cardiovasular: regular rate/rhythm, normal S1S2 Abdomen: non tender, normal bowel sounds, no rebound, no masses, no guarding Lower Extremities: no edema, no deformity, normal ROM Pulses: dorsalis pedis (R) (2+), dorsalis pedis (L) (2+), posterior tibial (R) , posterior tibial (L) (2+) Neuro: alert, oriented x 3, normal motor exam, normal sensation Psychiatric: normal affect Assessment & Plan 51 year old female being monitored in the ICU after mandibular saggital split to advance lower jaw with direct fixation ENT s/p mandibular saggital split with direct fixation decadron IV 6mg q6 hydrocodone/acetaminophen q3 prn toradol 30mg prn ativan prn for anxiety morphine 2mg q1 hr prn zofran 4mg IV q6 prn oxymetazoline nasal spray NEURO cam negative Cardiac continous cardiac monitoring blood pressure and heart rate well controlled RESP saturating well at room air continue to monitor O2 sats decadron 6mg IV q6 to decrease swelling from surgery GI zofran prn for nausea scopolamine patch clear liquid diet ID cefazolin for infection prophylaxis monitor fever curve RENAL D5W at 100mls/hr with 20meq of potassium DVT prophylaxis SCD's
[2017-03-10] MEDS ORDERED: CEFAZOLIN IV 1,000 MG in SYRINGE 0 ML IV SCH (16:00)
[2017-03-10] MEDS ORDERED: KETOROLAC TROMETHAMINE 30 MG/ML VIAL IV. SCH (18:00)
--- NOTE | 2017-03-10 19:57 | Discharge Instructions ---
Discharge Instructions Date of Service Mar 10, 2017. Admission Reason for Admission: Mandibular Retrognathism Discharge Discharge Diagnosis / Problem: S/P retrognathic lower jaw and jaw deformity Discharge Goals Goal(s): Decrease discomfort, Improve function, Increase independence, Improve nutritional status Activity Recommendations Activity Limitations: as noted below Lifting Limitations: no more than 10 pounds Exercise/Sports Limitations: none Shower/Bathe: no limitations Driving or Machine Use: resume 3 days after discharge Weightbearing Status: Left weightbearing (as tolerated), Right weightbearing ( as tolerated) . Instructions / Follow-Up Instructions / Follow-Up [facility] GENERAL POST-OPERATIVE INSTRUCTIONS FOR PATIENTS HAVING JAW SURGERY POST-OP INSTRUCTIONS BLEEDING: Will be under control by the time you leave our operating room. Some oozing or blood-tinged saliva may persist for up to 24 hours. Should excessive bleeding occur call the office or Dr. Arzola. Expect nasal oozing for a few days. This also will occur after getting up or after you shower. PAIN: Is best controlled by the medications recommended. They are most effective when taken before the local anesthesia diminishes and normal sensation returns to the area. Do not take pain pills on an empty stomach. Narcotic pain medication such as Vicodin or Percocet may cause nausea, vomiting, drowsiness, dizziness, itching or constipation. If these side effects occur, discontinue the medication. You may take an alternative over the counter pain medication (Tylenol or Motrin ) as necessary or call our office for assistance. SWELLING: May occur immediately and increase gradually over 24-48 hours. Swelling from the surgical procedure will maximize at 48-72 hours. Ice packs applied externally to the area at 20 minute intervals throughout the day of surgery may help control swelling, but only use them if advised to by our office. Sleeping with the head of bed elevated above the level of the heart for the first two post-operative nights may tend to lessen swelling. NAUSEA: May result from a general anesthetic or the drugs prescribed for pain. Drinking a small glass of a carbonated beverage will generally control mild nausea. If not controlled, call the office. The Zofran ODT may be used as instructed. DIET: Soft foods and liquids will be required for 24-48 hours following surgery. Avoid hot, spicy foods. Do not smoke. Non-chewy foods are okay if you are using the elastic bands. Follow the instruction about what to eat and how to remove and replace your bands as instructed by Dr. Arzola. If your jaw is wired together -liquid diet ONLY. ORAL HYGIENE: Should not be neglected. [place] your teeth as usual and rinse with warm salt water after each meal beginning gently the night of surgery. Use Peridex twice a day. Other mouth rinses can be used to keep your mouth clean. ACTIVITY: Should be restricted to a minimum for the first 7 -10 days. Strenuous work or exercise may promote bleeding. If you have had a general anesthetic or sedation, we must require that you be accompanied home by a responsible adult and an adult stays with you until recovered from the effects of the anesthesia. Under no circumstances are you to drive a car for at least 24 hours. FEVER: After surgery it is normal for the body temperature to be slightly elevated for 24 hours. SIDE EFFECTS: Such as an ear ache, temporary ache of adjacent teeth, restricted mouth opening , stretching or cracking at the corners of the mouth or discoloration of the skin may occur postoperatively. These are temporary conditions that will improve as healing progresses. As a result of the surgery your bite will feel off, this is normal. Your lower and upper lip will also feel numb as a result of the surgery; over time this will subside. EMERGENCIES: In case of profuse bleeding, uncontrolled pain, persistent nausea or abnormal elevation of temperature, if you have any questions about these instructions or your surgery please call our office or Dr. Peterson cell phone. Our goal is to make this procedure as safe and pleasant as possible. Email Dr. Arzola---[email or web address] Phone Dr. Arzola after hours and weekends, Phone (office) [phone] Current Hospital Diet Patient's current hospital diet: Clear Liquid Diet, N/A Soft diet as tolerated Discharge Diet Recommended Diet: Clear Liquid Diet Fluid Restriction: None Procedures Procedures Performed: Mandibular Sagittal Split to Advance Lower Jaw with Direct Fixation Pending Studies Studies pending at discharge: no Work Instructions Return To Work: after follow-up Lifting Limitations: no more than 10 pounds School Instructions Return To School: after follow-up Medical Emergencies . Who to Call and When: Medical Emergencies: If at any time you feel your situation is an emergency, please call 911 immediately. . Non-Emergent Contact Non-Emergency issues call your: Surgeon Contact Number: Dr Arzola [phone] Call Non-Emergent contact if: you have a fever, temperature is above 101.5, your pain is not controlled, your pain is worsening, your pain is unusual for you, your pain is concerning you, you have any medication questions Call Dr Arzola if any question . "Provider Documentation" section prepared by Pavan Arzola. . Sheet Metal Worker Supervisor Recommendations Sheet Metal Worker Supervisor Recommendations: NONE VTE Core Measure Inpt VTE Proph given/why not?: SCD's [place] Drug Monitoring Program Search Results: patient reviewed within database, no issues identified
[2017-03-10] MEDS ORDERED: TRIAMCINOLONE ACET 0.1% OINT 15 GM TUBE EXT SCH (21:00)
--- NOTE | 2017-03-11 07:38 | DISCHARGE SUMMARY ---
PROGRESS NOTE/DISCHARGE SUMMARY Ely Howard is a 51-year-old white female who has multiple allergies and multiple comorbidities. Really none of the comorbidities were serious enough to contraindicate the surgery. We received extensive medical consultations from her insemination worker as well as her television engineering teacher prior to scheduling her for surgery. The television engineering teacher did multiple skin testing on many of the allergens that the patient is allergic to, to ensure that we did not use any of these or drugs during her surgery. After she was medically cleared, she was admitted to [facility] for the orthognathic surgical procedure. Lianna's diagnosis is that of a severe mandibular dysplasia with malocclusion. The patient had a very abnormal bite and was not able to close her teeth properly. As a matter of fact, she was only biting on the most posterior teeth and caused excessive wear of these teeth. She underwent extensive orthodontics to level and align her teeth to allow for the orthognathic surgery to take place on 03/10/2017. On the morning of 03/10/2017 she was taken to the operating room and placed under general anesthesia via nasotracheal intubation. After adequate level of anesthesia was obtained, the patient was prepped and draped in the usual manner for bilateral sagittal split osteotomies. The patient's facial area was prepped in the usual manner and then using very sterile technique and good surgical management we were able to perform bilateral sagittal split osteotomies. The patient had an ideal mandible for the sagittal split, as a matter of fact, we had both sides of the mandibular sites sagittally split in a very ideal manner with preservation of the neurovascular bundle. Once the bilateral sagittal splits were performed the soft tissues were relaxed to allow for passive movement. The patient was placed in the ideal occlusion and held there with wires to ensure a good position. At this time I was able to place the osseous fixation with good control of the condyle within the fossa. Three bicortical screws were placed in each ramus. The nerve was preserved. The patient had minimal blood loss, less than 25 mL. Once the direct fixation was applied I released the intermaxillary fixation and found the occlusion to be satisfactory. The patient tolerated the procedure very well and had minimal swelling and minimal trauma to the tissues. The tissues were closed in the usual manner. Upon full recovery, the patient was transferred to the recovery room. In the recovery room, the patient was doing quite well. She was quite anxious as expected and after the nursing staff and I helped with some of her questions she seem to be much more relaxed. She was then transferred to the intensive care unit, where she was attended to very adequately by the nursing staff. She was very fortunate to have caring nurses who help allay her fear and apprehension. I saw Ely on 2 occasions; one at approximately 3:30 p.m. and as a matter of fact, she was doing extremely well. By that time, she was already up, had gone to the bathroom. She was drinking fluids and asked to have something more substantial than the fluids. At this time I noted that her occlusion was very stable and because I did not have any non-latex rubber bands she was not in any type of intermaxillary fixation. I reviewed the postoperative management with her and her mother and told her that I will be back later this evening to place latex-free dental elastics. At this time the patient was allowed to stay at hospital in the ICU unit with ice on her face. At approximately 7:15 p.m. I evaluated Ely once again. She was remarkably improved. Her swelling was minimal. She said she started to get more feeling to her facial area. Her occlusion was ideal. At this time I showed her had to place the latex-free dental elastics on either side of her cuspid teeth in a triangular fashion. She was able to open her mouth very well. Her occlusion was stable. She was taking fluids by mouth and asked to have a more substantial diet. The patient requested that she be discharged this evening. I discussed this with the nursing staff and they felt that that was appropriate since the patient was up, was talking well, was not having any problems and was in minimal pain. At this time I reviewed the postoperative management with she and her and felt very comfortable in discharging her. I reviewed the postoperative x-rays and found them to be satisfactory. I was very pleased with her progress and had okayed the discharge. Discharge instructions were given. They included all of her postoperative management and we also gave her a table of what medications to take and when to take them to ensure a good continuity of care between her pre and postoperative management. The patient will return to my office on Thursday03/13/2017 for postoperative management and postoperative x-rays. At this time, the patient will be allowed to have a full liquid diet as well as a soft diet as tolerated. We reviewed oral hygiene care. The patient has all her prescriptions at home which include pain medication, antibiotics and mouth rinse. At this time I felt that Ely was appropriate for discharge. Her vital signs were stable. She was up, alert, had no complaints and did extremely well from the surgical procedure. In essence, Ely did extremely well from a bilateral sagittal splits, had minimal bone loss, had an excellent postoperative recovery, was quite calm and relaxed compared to when she was preoperatively and I felt that it was appropriate for her to be discharged back to her own environment. Her agreed as well as the nursing staff. We have made arrangements for discharge and she was discharged from the hospital at approximately 8:30 p.m. on 03/10/2017.
--- NOTE | 2017-03-14 20:28 | OPERATIVE REPORT ---
DATE OF OPERATION: 03/10/2017 PREADMISSION DIAGNOSIS: Severe mandibular retrognathism. POSTOPERATIVE DIAGNOSIS: Same. OPERATION: Sagittal split osteotomy for advancement with direct osseous fixation. DESCRIPTION OF PROCEDURE: After this patient was cleared to undergo general anesthesia, she was brought down to the operating room and placed under general anesthesia via nasotracheal intubation. After adequate anesthesia was obtained, the patient was prepped and draped in the usual manner. Prior to doing this, the facial area was prepped and sterile dressings were applied around the facial area to isolate the face. At this time, the oral cavity was irrigated with Peridex mouth rinse and suctioned dried and an oropharyngeal throat pack was placed. I now used local anesthesia in the form of Marcaine with a vasoconstrictor and I gave bilateral inferior alveolar nerve blocks as well as infiltrating around the external oblique ridge. After an adequate period of time to allow for hemostasis and local anesthetic effect, I started the operative procedure. From the preoperative plan, the maxilla needed to be advanced about 7 mm. In order to do this, bilateral sagittal splits were performed. With the use of a retractor, I was able to hold the tissues tight. I now made an incision with the electrocautery blade of approximately 1.5 cm in length over the external oblique ridge. Great care was taken to dissect the tissues and the periosteum to get good visualization of the external oblique ridge, the angle of the mandible and then I carefully dissected the lingual tissue to observe the entrance of the nerve into the mandibular canal. With retraction, I was able to get good visualization of all of these anatomical structures. Now using a large round violette, I was able to smooth down the very sharp external oblique ridge. Once this was done with the use of a reciprocating saw, an osteotomy was made parallel to the occlusal plane of the lower teeth approximately 1-2 mm above the entrance of the nerve into the mandibular canal on the lingual side of the mandible. This bony incision was taken through the dense cortical bone. I now turned to a spear point Ross violette and made a series of holes along the external oblique ridge from the previously made osteotomy to the area posterior to the second molar. I now connected the small holes and made sure that I was into the marrow vascular channel. I once again switched back to the long nasal reciprocating blade and made an osteotomy along the facial aspect of the mandibular bone from the external oblique ridge down to the inferior border of the mandible. I kept this bony osteotomy parallel to the long axis of the second molar. I then turned my blade and was able to cut the inferior border of the mandible. At this time, I irrigated the area with copious amounts of normal saline and then using a pressure dressing, I packed the area to maintain hemostasis when I turned my attention to the opposite side. I now turned my attention to the left side. Once again, the tissues were held tight. The incision was made with the electrocautery instrument. The tissue was reflected to expose the anatomical structures that needed to be visualized. The neurovascular bundle was noted and now using the large round violette, I was able to smooth out the very sharp external oblique ridge. Now using the reciprocating saw with a straight blade, I was able to make the osteotomy on the lingual side of the mandible above the neurovascular bundle through the dense cortical bone. I now used a point Ross violette to make a series of holes along the external oblique ridge to the area just distal to the second molar. I now used the reciprocating saw once again to make a parallel osteotomy along the facial aspect of the first and second molar region through the dense cortical bone and ensured that I cut through the inferior border of the mandible as well. At this time, I turned my attention to the splitting process of the mandibular left side. Using a series of small osteotomes and bone spreaders, I was able to induce a sagittal split of the left side of the mandible. Because of the thickness of the bone which was very good, I was able to get an excellent split with preservation of the neurovascular bundle in the advancing fragment. Once the split was completed, I used a J periosteal elevator to relieve the mucoperiosteal tissue on the advancing fragment to allow for a passive advancement. The nerve was in good position and there was no bleeding from the marrow vascular channels. I made sure that the condyle was well seated within the glenoid fossa. Now using a round bur, I was able to remove any bony interferences which would prevent me from lining up the 2 fragments when it was time to do the direct osseous fixation. Being satisfied with the osteotomy cut and the split, I then packed the area with a gauze pressure dressing and turned my attention to the right side. At this time, I removed the gauze pressure dressing on the right side. Once again using a series of small osteotomes and bone spreaders, I was able to induce a sagittal split of the right side of the mandible. Once again this was an excellent split with preservation of the neurovascular bundle in the advancing fragment. The J periosteal elevator was used to release the mucoperiosteal tissue to allow for a passive advancement. The nerve was in good position. The round violette was used to remove any bony interferences. At this time, I irrigated the area and noted that we had a good split. At this time, I now removed the oropharyngeal throat pack, irrigated the throat and then suctioned the throat to ensure that there were no clots in the oropharyngeal area. I now removed the gauze pressure dressing between the 2 fragments on the left side. The mandible was quite passive and was able to easily advance to 7 mm. The preformed surgical splint was placed on the maxillary teeth and the mandible was then rotated into the splint and then using a series of 25 gauge inner dental wiring, I was able to induce intermaxillary fixation between the mandible and the maxilla. I now turned my attention back to the right side. I noted that the 2 fragments were aligning up very well and with the use of a hemostat, I was able to ensure that the condyle was well seated within the glenoid fossa. I then rotated the condyle into an ideal position and clasped the hemostat. At this time, an 11 blade was used to make a small lucrecia incision in the cheek. At this time, a trocar was placed and now using a 1.5 mm drill, I was able to make 3 holes above the neurovascular bundle, but below the external oblique ridge and placed 3 interosseous screws in the length of 8, 10 and 12. Once the screws were placed, I noted that I had excellent interfragment stability. I removed the small hemostat and noted that the fragments were lined up very well and that we had good in-approximation of the fragments. I irrigated the area and packed the area with the use of a gauze pressure dressing. I now turned my attention to the left side. Once again on the left side, I noted that the fragments were aligning up very well, but there was still some interference. With the use of the round violette, I was able to remove the interference and once I had the 2 fragments in a passive position, I used the hemostat to clasp them. I also made sure that prior to doing this that the condyle was well seated in the glenoid fossa. Once this was accomplished, I then used the 11 blade, made the lucrecia incision in the cheek, I placed a trocar and once again placed 3 holes above the neurovascular bundle, but below the external oblique ridge and the 8, 10 and 12 mm screws were placed. I released the clasp and noted that the fragment was very stable. Being satisfied with this, I turned my attention back to the right side, removed the pressure dressing. I now used a mine wirer and removed the intermaxillary wires and released the fixation. The guide was also removed. At this time, I opened the mouth and I was able to check the stability of the fragments. The fragments were extremely stable without any movement. My occlusion was lined up exactly as anticipated and no further manipulation was required. At this time, a bite block was placed on the left side. I was able to make sure that the screws did not perforate the lingual bone. Being satisfied with this, I then irrigated the area and made sure that all my bleeding and hemostasis was in control and after this was done, I closed the area with the use of a 4-0 Vicryl suture in an interrupted as well as continuous fashion. A good watertight closure was obtained. I now turned my attention to the left side. Once again, I checked to make sure that there were no screw perforations on the lingual cortical bone. Being satisfied with this, I irrigated the area, ensured that there was good hemostasis and then closed the area once again with both the continuous and interrupted 4-0 Vicryl suture. At this time, my nurse first officer, which was Corina Schultz, she passed an orogastric tube and evacuated the contents of the oral cavity and stomach. She then turned her attention to the closure of the small lucrecia incisions in the cheek which she accomplished with the use of a 6-0 nylon suture bilaterally. At this time, I placed 2 latex free rubber bands on the right and left sides to help maintain stability of the osteotomy sites. Once this was done, we then placed a pressure dressing around the patient's facial area with use of an elastic dressing. When all was said and done, the patient was then turned over to the anesthesia department where she was monitored. When it was appropriate for extubation, Ely Ortiz was extubated in the operating room. She was breathing satisfactory with all her vital signs stable. Once it was deemed appropriate, she was then transferred to the hospital litter and taken to the recovery room breathing in satisfactory condition with all vital signs stable. In the recovery room, I evaluated Ely, she was doing very well. Her occlusion was stable, the inner dental elastics were in good position. She had no bleeding and she had the typical swelling of her lower lips. At this time, I felt that we accomplished our goals of the surgical procedure. The surgical procedure lasted approximately 3 hours. The operating surgeon was Dr. Pavan Arzola. The first officer was Corina Schultz. Estimated blood loss was less than 25 mL. The plan, once the patient was discharged from the recovery room, she will be transferred to the intensive care unit where she will be monitored and then plans will be made for either transfer to the surgical floor or discharge to home. She tolerated the anesthesia and surgical procedure extremely well. I anticipate a very uneventful postoperative course. I attest to the content of the Intraoperative Record and any orders documented therein. Any exception s are noted below.
== END 2017-03-10 20:35 | disposition home or self-care (01) | DRG 132 ==
LOC: C.ACU 05:18 → C.MSICU 06:00 → ENRESERV 10:43
PROVIDERS: ADMIT Dentist Oral and Maxillofacial Surgery; ATTEND Dentist Oral and Maxillofacial Surgery
PROC: 0N8V0ZZ Division of Left Mandible, Open Approach (ICD-10-PCS; principal; 2017-03-10 07:15)
PROC: 0NSV04Z Reposition Left Mandible with Internal Fixation Device, Open Approach (ICD-10-PCS; principal; 2017-03-10 07:15)
PROC: 0N8T0ZZ Division of Right Mandible, Open Approach (ICD-10-PCS; principal; 2017-03-10 07:15)
PROC: 0NST04Z Reposition Right Mandible with Internal Fixation Device, Open Approach (ICD-10-PCS; principal; 2017-03-10 07:15)
DX: M26.19 Other specified anomalies of jaw-cranial base relationship (principal)

== ENCOUNTER 2017-05-03 11:54 | Emergency (ER) | payer BC ==
[~2017-05-03] VITALS: Ht 170.2 cm; Wt 56.7 kg
[~2017-05-03 11:54] MED LIST changes: +MISCCAP80 PO; +azo PO
[2017-05-03 12:00] VITALS: TEMP 36.6; Ht 170.2 cm; Wt 56.7 kg
[2017-05-03] MEDS ORDERED: BUPR100T8 PO (12:27)
[2017-05-03 12:33] LABS: BASO % 0.7 %; BASO ABS # 0.04 K/uL (0-0.2); COMPLETE YES; EOS % 3.5 %; HEMATOCRIT 38.9 % (37-47); IG% 0.2 %; LYMPH % 39.5 %; LYMPH ABS # 2.15 K/uL (1.2-3.4); MEAN CELL VOLUME 88.2 fL (80-100); MEAN CORPUSCULAR HEMOGLOBIN 29.3 pg (25-34); MEAN CORPUSCULAR HGB CONC 33.2 g/dl (32-36); MEAN PLATELET VOLUME 10.7 fL (7.4-10.4); NEUT % 47.1 %; PLATELET COUNT 276 K/uL (130-400); RED BLOOD COUNT 4.41 M/uL (4.2-5.4); WHITE BLOOD COUNT 5.44 K/uL (4.8-10.8)
[2017-05-03 12:50] LABS: BUN/CREATININE RATIO 13.1 (10-20); CALCIUM 9.2 mg/dl (8.5-10.1); CREATININE 0.75 mg/dl (0.60-1.20); POTASSIUM 4.3 mmol/L (3.5-5.1)
--- NOTE | 2017-05-03 12:52 | EMERGENCY ROOM VISIT NOTE ---
History Report prepared by Irma: Joao Fontanez Under the Supervision of: Dr. Chiara Pineda D.O. First contact with patient: 12:37 Chief Complaint: ABDOMINAL PAIN Stated Complaint: R SIDE AND BACK PAIN Nursing Triage Summary: PT present with right upper quadrant pain X 1 week. PT has decreased appetite. denies any vomiting. PT has no fever, PT did have constipation, took miralax, PT had diarrhea yesterday. History of Present Illness The patient is a 51 year old female who presents to the Emergency Room with complaints of worsening right sided abdominal pain starting a week ago. She currently rates her discomfort as a 6/10 in severity. The patient states that the pain is now going into her back. She notes that she has been having on and off nausea, fevers, and chills. She reports that she originally thought that it was constipation and took MiraLAX which has not helped after having multiple bowel movements. She states that the pain is not worse with deep breathing. The patient states that she went to [facility] this morning, and her urinalysis was negative. She has a history of a hysterectomy. She denies any history of diverticulitis. Source of History: patient Onset: a week ago Position: abdomen (right side) Symptom Intensity: 6/10 Timing: worsening Associated Symptoms: + fevers, + chills, + nausea Review of Systems See HPI for pertinent positives & negatives. A total of 10 systems reviewed and were otherwise negative. Past Medical & Surgical Medical Problems: (1) Anxiety (2) Anxiety (3) Chest pain (4) Chiari malformation (5) Depression (6) Dizziness (7) Epigastric pain Surgical Problems: (1) History of hysterectomy Family History Cancer Diabetes mellitus Heart disease Hypertension Social History Smoking Status: Current Every Day Smoker Alcohol Use: occasionally Marital Status: Housing Status: lives with significant other Occupation Status: employed Current/Historical Medications Scheduled Biotin (Biotin), 100 MG PO QAM Bupropion (Wellbutrin Sr), 100 MG PO TID Cholecalciferol (Vitamin D3), 1 TAB PO BID Cinnamon (Cinnamon Extract), 2 CAP PO QAM Clonazepam (Klonopin), 2 TAB PO HS Clonazepam (Klonopin), 0.5 TAB PO NOON Fish Oil ([place]-3), 1 CAP PO BID Hydroxyzine Pamoate (Vistaril), 1 CAP PO HS Multivitamin (Multivitamin), 1 TAB PO QAM Omeprazole (Prilosec), 40 MG PO QAM Oxybutynin Chloride (Ditropan), 5 MG PO HS Probiotic Product (Probiotic), 1 CAP PO HS Scheduled PRN Fluticasone Propionate (Nasal) (Flonase Allergy Relief), 1 DOSE JUAN CARLOS UD PRN for SINUS CONGESTION Methocarbamol (Robaxin), 500 MG PO UD PRN for Pain Tramadol (Ultram), 50 MG PO UD PRN for PAIN/MIGRAINES Allergies Coded Allergies: Sulfa Drugs (Verified Allergy, Severe, THROAT SWELLING, 03/10/17) Mirtazapine (Verified Allergy, Intermediate, UNKNOWN, 03/10/17) Sulfamethoxazole (Verified Allergy, Mild, CAN'T TAKE SULFA DRUGS, 03/10/17 ) Ciprofloxacin (Verified Allergy, Unknown, "throat closed up", 03/10/17) [place] (Verified Allergy, Unknown, THIS IS A METAL ALLERGY TO COBALT/ RASH , 03/10/17) Gold (Verified Allergy, Unknown, RASH, 03/10/17) Latex1 -Allergic Contact Dermititis (Verified Allergy, Unknown, rash, ) Neomycin (Verified Allergy, Unknown, RASH/ITCHY, 03/10/17) Nickel (Verified Allergy, Unknown, rash, 03/10/17) Sulfamethoxazole w/Trimethoprim (Verified Allergy, Unknown, "throat closed up", 03/10/17) Thimerosal (Verified Allergy, Unknown, RASH/ITCHY, 03/10/17) Trimethoprim (Verified Allergy, Unknown, UNKNOWN, 03/10/17) Zolpidem (Verified Adverse Reaction, Intermediate, SLEEP WALKING, 03/10/17 ) Scopolamine (Verified Adverse Reaction, Unknown, dizziness, 03/10/17) Physical Exam Vital Signs Date Time Temp Pulse Resp B/P (MAP) Pulse Ox O2 Delivery O2 Flow Rate FiO2 05/03/17 14:29 78 18 124/68 98 Room Air 05/03/17 13:22 77 18 133/71 100 05/03/17 12:00 36.6 77 20 111/77 97 Room Air Physical Exam HEENT: Head - normocephalic and atraumatic Pupils are equal, round, and reactive to light. Extraocular eye muscles are intact, and sclera are anicteric. Nose - moist nasal mucosa without discharge. Mouth - moist buccal mucosa. Oropharynx is nonerythematous and there is no tonsillar exudate or edema noted. Neck: Supple; no JVD, nuchal rigidity, cervical lymphadenopathy. Heart: Regular rate and rhythm. There is a normal S1 and S2 with no murmurs, clicks, or gallops appreciated. Lungs: Clear to auscultation bilaterally with no wheezes, rales, or rhonchi. Abdomen: There is pain over McBurney's point and over the right CVA. Soft, nondistended, with good bowel sounds. There are no palpable pulsatile masses or hepatosplenomegaly. There is no guarding, rigidity, or rebound noted. Extremities: No evidence of cyanosis, clubbing, or edema. There are easily palpable peripheral pulses. Skin: warm and dry with good turgor and no rashes. Medical Decision & Procedures ER Provider Diagnostic Interpretation: Radiology results as stated below per my review and the radiologist's interpretation: CT ABD/PELVIS IV CONTRAST ONLY CLINICAL HISTORY: Right lower quadrant abdominal pain COMPARISON STUDY: None. TECHNIQUE: Following the IV administration of 115 mL of Optiray-320, CT scan of the abdomen and pelvis was performed from the lung bases to the proximal femurs. Images are reviewed in the axial, sagittal, and coronal planes. IV contrast was administered without complication. A dose lowering technique was utilized adhering to the principles of ALARA. CT DOSE: 257.48 mGy.cm FINDINGS: Lower chest: The heart is normal in size and configuration, without pericardial effusion. The lung bases and pleural spaces are clear. Liver: There are hypodense hepatic lesions and minimally beneath the dome of diaphragm. The largest measures 9 mm. These approach water attenuation likely represent cysts. Gallbladder: Unremarkable. Spleen: Normal in size and attenuation. Pancreas: Unremarkable. Adrenal glands: Unremarkable. Kidneys: There is an 8 mm right renal cyst. No solid renal masses are visualized. There is a right-sided extrarenal pelvis. Bowel: There are no transition zones indicate bowel obstruction. The appendix is not visualized with certainty. There are however no findings to indicate acute appendicitis. There is no evidence of acute diverticulitis. Peritoneum: There is no intraperitoneal free air or abdominal ascites. Vasculature: The abdominal aorta is normal in course and caliber. Adenopathy: None. Pelvic viscera: The uterus appears surgically absent. Skeletal structures: No destructive osseous lesions are seen. IMPRESSION: 1. No evidence of bowel obstruction. No evidence of free air. 2. No evidence of acute diverticulitis. No evidence of acute appendicitis. Electronically signed by: Jenaro Mitchell M.D. 05/03/2017 1:25 PM Dictated Date/Time: 05/03/2017 1:19 PM Laboratory Results 05/03/17 12:14 Red Blood Count 4.41, Mean Corpuscular Volume 88.2, Mean Corpuscular Hemoglobin 29.3, Mean Corpuscular Hemoglobin Concent 33.2, Mean Platelet Volume 10.7, Neutrophils (%) (Auto) 47.1, Lymphocytes (%) (Auto) 39.5, Monocytes (%) (Auto) 9.0, Eosinophils (%) (Auto) 3.5, Basophils (%) (Auto) 0.7, Neutrophils # (Auto) 2.56, Lymphocytes # (Auto) 2.15, Monocytes # (Auto) 0.49, Eosinophils # (Auto) 0.19, Basophils # (Auto) 0.04 05/03/17 12:14 Test 05/03/17 12:14 05/03/17 12:54 White Blood Count 5.44 K/uL (4.8-10.8) Red Blood Count 4.41 M/uL (4.2-5.4) Hemoglobin 12.9 g/dL (12.0-16.0) Hematocrit 38.9 % (37-47) Mean Corpuscular Volume 88.2 fL (80-100) Mean Corpuscular Hemoglobin 29.3 pg (25-34) Mean Corpuscular Hemoglobin Concent 33.2 g/dl (32-36) Platelet Count 276 K/uL (130-400) Mean Platelet Volume 10.7 fL (7.4-10.4) Neutrophils (%) (Auto) 47.1 % Lymphocytes (%) (Auto) 39.5 % Monocytes (%) (Auto) 9.0 % Eosinophils (%) (Auto) 3.5 % Basophils (%) (Auto) 0.7 % Neutrophils # (Auto) 2.56 K/uL (1.4-6.5) Lymphocytes # (Auto) 2.15 K/uL (1.2-3.4) Monocytes # (Auto) 0.49 K/uL (0.11-0.59) Eosinophils # (Auto) 0.19 K/uL (0-0.5) Basophils # (Auto) 0.04 K/uL (0-0.2) RDW Standard Deviation 38.5 fL (36.4-46.3) RDW Coefficient of Variation 12.0 % (11.5-14.5) Immature Granulocyte % (Auto) 0.2 % Immature Granulocyte # (Auto) 0.01 K/uL (0.00-0.02) Anion Gap 5.0 mmol/L (3-11) Est Creatinine Clear Calc Drug Dose 81.2 ml/min Estimated GFR () 108.5 Estimated GFR (Non- 93.6 BUN/Creatinine Ratio 13.1 (10-20) Calcium Level 9.2 mg/dl (8.5-10.1) Total Bilirubin 0.3 mg/dl (0.2-1) Aspartate Amino Transf (AST/SGOT) 17 U/L (15-37) Alanine Aminotransferase (ALT/SGPT) 15 U/L (12-78) Alkaline Phosphatase 94 U/L (45-117) Total Protein 7.9 gm/dl (6.4-8.2) Albumin 4.1 gm/dl (3.4-5.0) Globulin 3.8 gm/dl (2.5-4.0) Albumin/Globulin Ratio 1.1 (0.9-2) Lipase 178 U/L (73-393) Urine Color YELLOW Urine Appearance CLEAR (CLEAR) Urine pH 7.5 (4.5-7.5) Urine Specific [place] 1.010 (1.000-1.030) Urine Protein NEG (NEG) Urine Glucose (UA) NEG (NEG) Urine Ketones NEG (NEG) Urine Occult Blood NEG (NEG) Urine Nitrite NEG (NEG) Urine Bilirubin NEG (NEG) Urine Urobilinogen NEG (NEG) Urine Leukocyte Esterase NEG (NEG) Laboratory results per my review. ED Course 1237: Past medical records reviewed. The patient was evaluated in room C11. A complete history and physical exam was performed. Labs are drones above. The patient went for a CT scan of the abdomen/pelvis as described above. 1409: Upon reevaluation, the patient is doing well. I discussed findings and results with her. She verbalized agreement of the treatment plan. She was discharged home. Medical Decision The patient is a 51 year old female who presents to the ED with abdominal pain. Differential diagnosis includes diverticulitis, appendicitis, cholecystitis, ureteral colic, pyelonephritis, and musculoskeletal strain. Lab results: no leukocytosis, stable H&H, negative lipase and LFTs, normal renal function and glucose, negative urinalysis. This is a 51-year-old female who presents to the emergency department with right -sided abdominal pain. Her symptoms have been progressing over the past one week. Urinalysis was unremarkable. The patient has had a previous hysterectomy and therefore I do not suspect ectopic or ovarian cysts. CT scan was unremarkable except for a small renal cyst which I encouraged her to follow for. The patient was told to return to the emergency department she'll fevers, worsening pain, or hematemesis or hematochezia. Otherwise, she can follow up with her PCP if the pain persists. Medication Reconcilliation Current Medication List: was personally reviewed by me Blood Pressure Screening Patient's blood pressure: Normal blood pressure Impression Primary Impression: Right lower quadrant abdominal pain Scribe Attestation The scribe's documentation has been prepared under my direction and personally reviewed by me in its entirety. I confirm that the note above accurately reflects all work, treatment, procedures, and medical decision making performed by me. Departure Information Dispostion Home / Self-Care Referrals Albert Rivas Jr,D.O. (PCP) Forms Call Back Authorization, HOME CARE DOCUMENTATION FORM, IMPORTANT VISIT INFORMATION Patient Instructions ED Abdominal Pain Unkn Cause, [facility] Additional Instructions Rest. take a bland diet. Return to the ER if you spike a fever, have intractable vomiting or the pain worsens. Otherwise, if pain persists, follow up with PCP
[2017-05-03 12:53] LABS: ALB/GLOB RATIO 1.1 (0.9-2)
[2017-05-03] MEDS ORDERED: OPTIRAY 320 IV PRN (13:00)
[2017-05-03 13:10] LABS: URINE APPEARANCE CLEAR (CLEAR); URINE BILIRUBIN NEG (NEG); URINE COLOR YELLOW; URINE NITRITE NEG (NEG); URINE PH 7.5 (4.5-7.5); UROBILINOGEN NEG (NEG); ZZUR CULT IF INDIC CLEAN CATCH NO
[2017-05-03 13:11] LABS: MANUAL MICROSCOPIC REQUIRED? NO; REVIEW REQ? NO
--- NOTE | 2017-05-03 13:26 | DIAGNOSTIC IMAGING REPORT ---
CT ABD/PELVIS IV CONTRAST ONLY CLINICAL HISTORY: Right lower quadrant abdominal pain COMPARISON STUDY: None. TECHNIQUE: Following the IV administration of 115 mL of Optiray-320, CT scan of the abdomen and pelvis was performed from the lung bases to the proximal femurs. Images are reviewed in the axial, sagittal, and coronal planes. IV contrast was administered without complication. A dose lowering technique was utilized adhering to the principles of ALARA. CT DOSE: 257.48 mGy.cm FINDINGS: Lower chest: The heart is normal in size and configuration, without pericardial effusion. The lung bases and pleural spaces are clear. Liver: There are hypodense hepatic lesions and minimally beneath the dome of diaphragm. The largest measures 9 mm. These approach water attenuation likely represent cysts. Gallbladder: Unremarkable. Spleen: Normal in size and attenuation. Pancreas: Unremarkable. Adrenal glands: Unremarkable. Kidneys: There is an 8 mm right renal cyst. No solid renal masses are visualized. There is a right-sided extrarenal pelvis. Bowel: There are no transition zones indicate bowel obstruction. The appendix is not visualized with certainty. There are however no findings to indicate acute appendicitis. There is no evidence of acute diverticulitis. Peritoneum: There is no intraperitoneal free air or abdominal ascites. Vasculature: The abdominal aorta is normal in course and caliber. Adenopathy: None. Pelvic viscera: The uterus appears surgically absent. Skeletal structures: No destructive osseous lesions are seen. IMPRESSION: 1. No evidence of bowel obstruction. No evidence of free air. 2. No evidence of acute diverticulitis. No evidence of acute appendicitis. Electronically signed by: Jenaro Mitchell M.D. 05/03/2017 1:25 PM Dictated Date/Time: 05/03/2017 1:19 PM
[2017-05-03 14:29] VITALS: BP 124/68; PULSE 78; O2SAT 98
== END 2017-05-03 14:37 | disposition home or self-care (01) ==
LOC: C.EDB 11:55 → C.EDC 14:37
DX: R10.31 Right lower quadrant pain (principal); R11.0 Nausea; R50.9 Fever, unspecified; N28.1 Cyst of kidney, acquired; F41.9 Anxiety disorder, unspecified; Q07.00 Arnold-Chiari syndrome without spina bifida or hydrocephalus; F32.9 Major depressive disorder, single episode, unspecified; F17.200 Nicotine dependence, unspecified, uncomplicated; Z90.710 Acquired absence of both cervix and uterus; Z83.3 Family history of diabetes mellitus; Z82.49 Family history of ischemic heart disease and other diseases of the circulatory system

== ENCOUNTER → 2017-05-13 | Outpatient (CLI) | payer OTHER ==
[~2017-05-13] MED LIST changes: +BUPR100T8 PO; -CLON0.5T3 PO; +KLN/5 PO; +METH-445 PO; -METH500T37 PO; +NRN100 PO; -WLL75 PO; -azo PO
--- NOTE | 2017-05-13 13:56 | DIAGNOSTIC IMAGING REPORT ---
KUB HISTORY: Acute generalized abdominal pain ABDOMINAL PAIN, CONSTIPATION COMPARISON: CT abdomen and pelvis 05/03/2017. FINDINGS: The bowel gas pattern is non-obstructive. There is moderate stool volume of the rectosigmoid. There is no organomegaly. No renal calculi. No ureteral calculi. No pneumoperitoneum or pneumatosis. No fracture. IMPRESSION: 1. Moderate stool volume of the rectosigmoid with nonobstructive bowel gas pattern. 2. No renal or ureteral stones. Electronically signed by: Marvel Marquez M.D. 05/13/2017 1:55 PM Dictated Date/Time: 05/13/2017 1:54 PM
== END | disposition home or self-care (01) ==
LOC: C.RAD1850 13:29
DX: K59.00 Constipation, unspecified (principal); R10.9 Unspecified abdominal pain

== ENCOUNTER 2017-06-26 20:11 | Emergency (ER) | payer OTHER ==
[~2017-06-26] VITALS: Ht 170.2 cm; Wt 57.4 kg
[~2017-06-26 20:11] MED LIST changes: +CLON0.5T3 PO; -KLN/5 PO; -METH-445 PO; +METH500T37 PO; -NRN100 PO
[2017-06-26 20:17] VITALS: TEMP 36.3; Ht 170.2 cm; Wt 57.4 kg
[2017-06-26] MEDS ORDERED: ACETAMINOPHEN 500 MG TAB PO STA (20:41)
--- NOTE | 2017-06-26 21:41 | DIAGNOSTIC IMAGING REPORT ---
CT OF THE HEAD WITHOUT CONTRAST CLINICAL HISTORY: EVALUATE CHI/CONCUSSION COMPARISON STUDY: Head CT and MRI of the brain March 21, 2015. CT DOSE: 969.81 mGy.cm TECHNIQUE: Helical axial images of the head were obtained without IV contrast. Automated exposure control was utilized for the study. A dose lowering technique was utilized adhering to the principles of ALARA. FINDINGS: No acute intracranial hemorrhage, midline shift or mass effect is present. Brain volume is normal. Ventricular system is normal. Lopez-white differentiation is maintained pain. There is no calvarial fracture. IMPRESSION: 1. No acute intracranial findings. 2. No calvarial fracture. Electronically signed by: Peter Nieves M.D. 06/26/2017 9:40 PM Dictated Date/Time: 06/26/2017 9:38 PM
[2017-06-26] MEDS ORDERED: NRN100 PO (21:44)
--- NOTE | 2017-06-26 21:45 | DIAGNOSTIC IMAGING REPORT ---
CT OF THE CERVICAL SPINE WITHOUT CONTRAST CLINICAL HISTORY: EVALUATE CHI/CONCUSSION COMPARISON STUDY: Cervical spine MRI August 06, 2016. TECHNIQUE: Helical axial images of the cervical spine were obtained without IV contrast. Sagittal and coronal reconstructions were viewed. A dose lowering technique was utilized adhering to the principles of ALARA. FINDINGS: Alignment of the cervical spine is anatomic. There is no acute fracture. The craniocervical junction is intact. Facet joints are intact. Disc space narrowing and osteophytosis at C5-C6 is noted. IMPRESSION: No acute cervical spine fracture or subluxation. Electronically signed by: Peter Nieves M.D. 06/26/2017 9:44 PM Dictated Date/Time: 06/26/2017 9:41 PM
[2017-06-26 22:11] VITALS: BP 121/64; PULSE 81; O2SAT 97
--- NOTE | 2017-06-27 01:58 | EMERGENCY ROOM VISIT NOTE ---
History Report prepared by Irma: Wan Corado Under the Supervision of: Dr. Cristopher Sorto M.D. First contact with patient: 20:32 Chief Complaint: HEAD INJURY (MINOR) Stated Complaint: POSSIBLE CONCUSSION History of Present Illness The patient is a 51 year old female who presents to the Emergency Room with complaints of a head injury that occurred earlier today. She states that she was reaching to plug a cord into the wall under her desk when she came up from underneath and banged the top of her head under her desk. She reports a headache with hazy visual changes. She denies any other visual changes. She denies any LOC. She has a history of concussions from a previous similar injury. She currently rates her pain a 6/10 in severity. She reports a tingling sensation in her head and feeling dizzy on the way to [facility]. She was advised to come to the ED for further evaluation. She reports sore throat and ear pain. She reports new neck pain, though has baseline neck pain due to a Chiari malformation. She is expected to have an MRI on Thursday to assess her Chiari malformation. Pt denies fevers, chills, chest pain, breathing difficulties, nausea, vomiting, abdominal pain, back pain, urinary symptoms, numbness, or weakness. Source of History: patient Onset: two hours ago Position: head Symptom Intensity: 6/10 Quality: other (injury) Timing: other (episodic ) Associated Symptoms: + headache, + sorethroat, + neck pain, No LOC Note: She notes hazy visual changes, tingly, and dizziness. She reports ear pain. Review of Systems See HPI for pertinent positives and negatives. A total of ten systems were reviewed and were otherwise negative. Past Medical & Surgical Medical Problems: (1) Anxiety (2) Anxiety (3) Chest pain (4) Chiari malformation (5) Connective tissue disorder (6) Depression (7) Dizziness (8) Epigastric pain (9) Hiatal hernia (10) Interstitial cystitis (11) Osteopenia (12) Schatzki's ring (13) Vertigo Surgical Problems: (1) History of hysterectomy (2) History of mandibular surgery Family History Cancer Diabetes mellitus Heart disease Hypertension Lung disease Social History Smoking Status: Never Smoker Smokeless Tobacco Use: No Alcohol Use: none Drug Use: none Marital Status: Housing Status: lives with significant other Occupation Status: employed Current/Historical Medications Scheduled Biotin (Biotin), 100 MG PO QAM Bupropion (Wellbutrin Sr), 100 MG PO TID Cholecalciferol (Vitamin D3), 1 TAB PO BID Cinnamon (Cinnamon Extract), 2 CAP PO QAM Clonazepam (Klonopin), 2 TAB PO HS Clonazepam (Klonopin), 0.5 TAB PO NOON Fish Oil (Pilger-3), 1 CAP PO BID Gabapentin (Gabapentin), 100 MG PO TID Hydroxyzine Pamoate (Vistaril), 1 CAP PO HS Multivitamin (Multivitamin), 1 TAB PO QAM Omeprazole (Prilosec), 40 MG PO QAM Probiotic Product (Probiotic), 1 CAP PO HS Scheduled PRN Fluticasone Propionate (Nasal) (Flonase Allergy Relief), 1 DOSE JUAN CARLOS UD PRN for SINUS CONGESTION Methocarbamol (Robaxin), 500 MG PO UD PRN for Pain Tramadol (Ultram), 50 MG PO UD PRN for PAIN/MIGRAINES Allergies Coded Allergies: Sulfa Drugs (Verified Allergy, Severe, THROAT SWELLING, 03/10/17) Mirtazapine (Verified Allergy, Intermediate, UNKNOWN, 03/10/17) Sulfamethoxazole (Verified Allergy, Mild, CAN'T TAKE SULFA DRUGS, 03/10/17 ) Ciprofloxacin (Verified Allergy, Unknown, "throat closed up", 03/10/17) Palo (Verified Allergy, Unknown, THIS IS A METAL ALLERGY TO COBALT/ RASH , 03/10/17) Gold (Verified Allergy, Unknown, RASH, 03/10/17) Latex1 -Allergic Contact Dermititis (Verified Allergy, Unknown, rash, ) Neomycin (Verified Allergy, Unknown, RASH/ITCHY, 03/10/17) Nickel (Verified Allergy, Unknown, rash, 03/10/17) Sulfamethoxazole w/Trimethoprim (Verified Allergy, Unknown, "throat closed up", 03/10/17) Thimerosal (Verified Allergy, Unknown, RASH/ITCHY, 03/10/17) Trimethoprim (Verified Allergy, Unknown, UNKNOWN, 03/10/17) Zolpidem (Verified Adverse Reaction, Intermediate, SLEEP WALKING, 03/10/17 ) Scopolamine (Verified Adverse Reaction, Unknown, dizziness, 10/31/17) Physical Exam Vital Signs Date Time Temp Pulse Resp B/P (MAP) Pulse Ox O2 Delivery O2 Flow Rate FiO2 06/26/17 22:11 81 16 121/64 97 06/26/17 20:17 36.3 79 18 119/64 97 Room Air Physical Exam GENERAL: Awake, alert, uncomfortable appearing, no acute distress HEAD: Normocephalic, atraumatic. No carreno sign. No raccoon eyes. EYES: Normal conjunctiva. PERRL. EARS: External ears normal. Right TM normal. Left TM normal. NOSE: Atraumatic OROPHARYNX: Lips, tongue, and mucosa unremarkable. No erythema or exudate. NECK: Supple. FROM. No tracheal deviation or JVD. No posterior midline tenderness. No step offs noted. Posterior tenderness on upper aspect. RESPIRATORY: CTA bilaterally. Breath sounds equal. No wheezes. No rhonchi. CARDIAC: Normal rate, normal rhythm. No murmurs. No rubs. ABDOMEN: Inspection reveals no abnormalities. Soft, non distended. No tenderness to palpation. No hernias. BACK: No midline step offs or tenderness to palpation. Unremarkable. PELVIS: Stable to rock. SKIN: Normal. LYMPH: No adenopathy. MUSCULOSKELETAL: Upper and lower extremities are atraumatic. NEURO: GCS 15. Normal sensorium. No sensory or motor deficits noted. Medical Decision & Procedures ER Provider Diagnostic Interpretation: Radiology results as stated below per my review and radiologist interpretation: CT OF THE HEAD WITHOUT CONTRAST CLINICAL HISTORY: EVALUATE CHI/CONCUSSION COMPARISON STUDY: Head CT and MRI of the brain March 21, 2015. CT DOSE: 969.81 mGy.cm TECHNIQUE: Helical axial images of the head were obtained without IV contrast. Automated exposure control was utilized for the study. A dose lowering technique was utilized adhering to the principles of ALARA. FINDINGS: No acute intracranial hemorrhage, midline shift or mass effect is present. Brain volume is normal. Ventricular system is normal. Lopez-white differentiation is maintained pain. There is no calvarial fracture. IMPRESSION: 1. No acute intracranial findings. 2. No calvarial fracture. Electronically signed by: Peter Nieves M.D. 06/26/2017 9:40 PM Dictated Date/Time: 06/26/2017 9:[address] OF THE CERVICAL SPINE WITHOUT CONTRAST CLINICAL HISTORY: EVALUATE CHI/CONCUSSION COMPARISON STUDY: Cervical spine MRI August 06, 2016. TECHNIQUE: Helical axial images of the cervical spine were obtained without IV contrast. Sagittal and coronal reconstructions were viewed. A dose lowering technique was utilized adhering to the principles of ALARA. FINDINGS: Alignment of the cervical spine is anatomic. There is no acute fracture. The craniocervical junction is intact. Facet joints are intact. Disc space narrowing and osteophytosis at C5-C6 is noted. IMPRESSION: No acute cervical spine fracture or subluxation. Electronically signed by: Peter Nieves M.D. 06/26/2017 9:44 PM Dictated Date/Time: 06/26/2017 9:41 PM Medications Administered Medications (Trade) Dose Ordered Sig/Alicia Route Start Time Stop Time Status Last Admin Dose Admin Acetaminophen (Tylenol Tab) 1,000 mg NOW STAT PO 06/26/17 20:41 06/26/17 20:42 DC 06/26/17 21:16 1,000 MG ED Course 2034: The patient was evaluated in room D7. A complete history and physical exam was performed. 2040: Ordered Tylenol 1,000 mg PO 2153: I reassessed the patient at this time. She is feeling better and resting comfortably. I discussed the results and treatment plan with the patient. I answered all pertaining questions that she had. She expressed understanding and verbalized agreement. The patient will be discharged home. Medical Decision Prior records/ancillary studies reviewed. Triage Nursing notes reviewed and agree them. Additional history obtained from her . The patient's history was concerning for traumatic head injury Differential diagnosis: Etiologies such as contusion, fracture, subdural hematoma, concussion, epidural hematoma, intraparenchymal hemorrhage, as well as other traumatic pathologies were entertained. Physical examination findings: As above. ER treatment provided: P.o. Tylenol On reassessment the patient felt better. Diagnostics interpreted by me: Imaging studies: CT scans as above It appears the patient has a concussion with a minor cervical strain.I gave my usual and customary discussion regarding this issue. By the evaluation outlined above emergent etiologies such as fracture, subdural hematoma, epidural hematoma, intraparenchymal hemorrhage, as well as others were deemed relatively unlikely. The patient and were informed about the findings as listed above. All questions were answered and they were pleased with the treatment. Return instructions were outlined and the patient was discharged in stable condition. Referral: The patient was referred back to her primary care physician for follow-up next week for a recheck of the current condition. Head Trauma GCS Score: 15 Medication Reconcilliation Current Medication List: was personally reviewed by me Blood Pressure Screening Patient's blood pressure: Normal blood pressure Impression Primary Impression: Concussion Scribe Attestation The scribe's documentation has been prepared under my direction and personally reviewed by me in its entirety. I confirm that the note above accurately reflects all work, treatment, procedures, and medical decision making performed by me. Departure Information Dispostion Home / Self-Care Referrals Albert Rivas Jr,D.O. (PCP) Forms HOME CARE DOCUMENTATION FORM, IMPORTANT VISIT INFORMATION Patient Instructions My [facility] Additional Instructions CONCUSSION DISCHARGE INSTRUCTIONS: What is a concussion? A concussion is a disturbance in the function of the brain caused by a direct or indirect force to the head. It results in a variety of symptoms like: headache, balance problems, nausea, vomiting, vision problems, hearing problems/ringing, drowsiness, irritability, and/or difficulty concentrating or remembering. A concussion may, or may not involve memory problems or loss of consciousness. Concussion instructions: Stop and stay away from ALL physical activity until you are symptom free from: Headaches Balance problems Feeling "dinged" Poor concentration Drowsy Fatigued Rest and avoid strenuous activities for the next few days. Get 8-10 hours of sleep per night. Limit activities that involve significant concentration and attention during this time to speed your recovery. This includes studying, attending school, playing video games, and heavy reading. Your brain needs to rest. Eat right and eat often. Now is the time to feed your brain. Well balanced diets that avoid high sugar foods, sodas, caffeine, etc. are better for your brain. NO ALCOHOL OR DRUGS! Avoid stimulants like caffeine, red bull, mountain dew, "energy" drinks, etc. Tylenol(acetaminophen) may be used for headaches. Use 1000mg every six hours as needed. Avoid using more than 4000mg in a 24 hour period. Avoid anti-inflammatories such as aspirin, ibuprofen, Alleve, naprosyn, Motrin, or Advil as these can interfere with blood clotting and lead to bleeding within the brain after a traumatic injury. FOLLOW UP INSTRUCTIONS: Follow-up with your primary care physician in 2 to 3 days for a recheck of your current condition. POST CONCUSSIVE SYNDROME: Occasionally patients can experience a postconcussive syndrome which includes prolonged headaches and memory difficulties. This may occur over the next several days, weeks or rarely, even months. It is important to have a primary care physician follow-up in order to help if the situation develops. Problems could arise over the next 24 to 48 hours. You should not be left alone and MUST go to the hospital immediately if you: -Have a headache that suddenly gets worse. -Are very drowsy or cannot be woken up from sleep. -Can't recognize people or places. -Have repeated vomiting. -Behave unusually, seemed confused, or start acting irritable. -Have a seizure (arms and legs start jerking uncontrollably). -Have weak or numb arms or legs. -Are unsteady on your feet -Experience slurred speech or difficulty speaking.
== END 2017-06-26 22:08 | disposition home or self-care (01) ==
LOC: C.EDB 20:13 → C.EDD 22:08
DX: S06.0X0A Concussion without loss of consciousness, initial encounter (principal); W22.8XXA Striking against or struck by other objects, initial encounter; F41.9 Anxiety disorder, unspecified; F32.9 Major depressive disorder, single episode, unspecified; Z83.3 Family history of diabetes mellitus; Z82.49 Family history of ischemic heart disease and other diseases of the circulatory system

== ENCOUNTER → 2017-07-09 | Outpatient (CLI) | payer OTHER ==
[~2017-07-09] MED LIST changes: -DTR/5 PO; +GADAVIST IV PRN; +NRN100 PO
--- NOTE | 2017-07-09 20:03 | DIAGNOSTIC IMAGING REPORT ---
BRAIN COMBO CLINICAL HISTORY: 51 years-old Female presenting with Q04.8 Cerebellar tonsillar [id number] Headache, [id number], known Chiari malformation, worsening memory problems, worsening headache. TECHNIQUE: Multisequence, multiplanar MR imaging of the brain was performed before and after the administration of intravenous contrast. IV contrast: 6 mL of Gadavist. COMPARISON: Noncontrast CT head from 06/26/2017 and noncontrast MR brain from 2014. FINDINGS: Extensive susceptibility artifact results from amalgam limiting image quality of diffusion-weighted imaging and several additional sequences primarily limiting diagnostic sensitivity in the frontal lobes. Ventricles and sulci normal in size. Limited (less than 10) subcortical white matter foci of T2/FLAIR hyperintensity, nonspecific. These foci do not demonstrate restricted diffusion or enhancement. No mass effect or midline shift. No restricted diffusion to suggest acute ischemia. No hemorrhage. No extra-axial fluid collection. T2 skull base flow voids preserved. Postcontrast imaging was not performed. Bone marrow signal intensity within the calvarium within normal limits. IMPRESSION: 1. No acute intracranial abnormality. 2. Few nonspecific foci of subcortical white matter signal abnormality without evidence of associated enhancement or restricted diffusion. These are greater in number than would be expected for age-related change. This could represent chronic small vessel ischemic change among other etiologies including demyelinating disease or vasculitis. Allowing for differences in scan parameters, no significant change since the prior exam. Electronically signed by: Alan Dykes M.D. 07/09/2017 8:02 PM Dictated Date/Time: 07/09/2017 7:54 PM
== END | disposition home or self-care (01) ==
LOC: C.MRI 18:40
PROVIDERS: ATTEND Psychiatry & Neurology Neurology
DX: R41.89 Other symptoms and signs involving cognitive functions and awareness (principal); G37.9 Demyelinating disease of central nervous system, unspecified; Q04.8 Other specified congenital malformations of brain; R51 Headache

== ENCOUNTER → 2017-07-23 | Outpatient (CLI) | payer OTHER ==
[~2017-07-23] MED LIST changes: -GADAVIST IV PRN
== END | disposition home or self-care (01) ==
LOC: C.LABSPEC 16:59
PROVIDERS: ATTEND Nurse Practitioner Adult Health
DX: N30.10 Interstitial cystitis (chronic) without hematuria (principal)

== ENCOUNTER → 2017-09-18 | Outpatient (CLI) | payer OTHER ==
--- NOTE | 2017-09-19 05:34 | PAP/PSG TECHNICIAN REPORT ---
[facility] Remote Advisor Polysomnogram Report Study name: None Report date: 09/19/2017 Study date: 09/18/2017 Referring Physician: Dr. Albert Rivas Name: STEPH ORTIZ Interpreting Physician: Cristopher Oh M.D. Date of : 1965 Remote Advisor: [facility]. Sex: Female Age: 51 StudyType: PSG Weight: 125 lbs Height: 51 years, Height 5' 7" BMI: 19.58 Medications: Wellbutrin 100 mg, Clonazapam 0.5mg, Omeprazole 40 mg, Hydroxyzine 25 mg, Ativan 0.5 mg, Methocarbbamol 500 mg, Fish Oil 1200 mg, Cinnamon 1000 mg, Vitamin D 3 500 iu, Vitamin B 12 500 mcg, Multi Vitamin, Biotin 5000 mg, Megnesium 400 mg, Probiotics, Vitamin C Patient History 51 yr. old female here for a diagnostic/possible split night sleep study. Patient had a HST that she believes is inaccurate. The one-night HST showed an CHRISTINE of 2.8. ESS 02/01. Parameters Monitored NPSG: E1-M2, E2-M1, Fp1-M2, Fp2-M1, F3-M2, F4-M2, F4-M1, C3-M2, C4-M2, C4-M1, O1-M2, O2-M2, O2-M1, T3-M2, T4-M1, P3-M2, P4-M1, CHIN1, CHIN2, HR, EKG, Legs, PFLOW, SNOR, FLOW, CFLOW, Tidal Volume, THOR, ABDO, SpO2, PLTH, CPRESS, ETCO2 Wave, ETCO2, pH Sleep Architecture Sleep Stages Time at Lights Off 10:03:23 PM STAGES Time (min.) TST (%) Time at Lights On 5:20:23 AM Wake 26.0 -- Total Recording Time (TRT) 436.00 min. N1 25.5 6 Total Sleep Period (TSP) 429.0 min. N2 316.0 77 Total Sleep Time (TST) 410.0min. N3 34.0 8 Awake Time 26.0 min. REM 34.5 8 Wake after Sleep Onset 20.5 min. Sleep Efficiency (SE) 94 % Sleep Onset Latency (MARY) 6.5 min. Number of Stage 1 Shifts None Awakenings 25 Stage Changes 99 Number of REM periods 11 REM 34.5 8 REM Latency 177.0 min. NREM 375.5 92 Body Position Analysis Supine Right Left Side Prone Vertical Total Sleep Time (min.) 435.7 0.0 0.0 0.00 0.0 0.3 Total Sleep Time (%) 100% 0% 0% 0 0% N/A% Total Sleep Time REM (min.) 34.5 0.0 0.0 None 0.0 0.0 Total Sleep Time NREM (min.) 375.5 0.0 0.0 None 0.0 0.0 Intermittent Wake (min.) 25.7 0.0 0.0 None 0.0 0.3 Total Sleep Period (%) 100% None None None None None Arousals Myoclonus (PLM) * Events Count Index Events Count Index Spontaneous 21 3 Events Awake (PLMW) 22 50.8 Respiratory 11 2.2 Events Asleep w/ Arousal (PLMA) 11 1.6 PLM 11 2 Events Asleep w/o Arousal (PLMS) 24 3.5 Snoring 16 2 Total Asleep 35 5.1 Total 58 8 Total 57 8 Respiratory Analysis * CA OA MA CH H RERA Total Count 2 35 0 0 17 7 54 Index 0.3 5.1 0.0 0 2.5 1 8.9 Mean Duration 26.4 17.2 0.0 0.00 27.7 25.9 21.4 Longest Duration 35.7 27.1 0.0 0.00 0.0 34.6 57.1 Respiratory Event Summary Total Supine ~Supine Right Left Prone REM NREM Apneas Count 37 37 N/A N/A N/A N/A 19 18 Index 5.4 5 N/A N/A N/A N/A 33 3 Hypopneas (4% Desat) Count 17 17 N/A N/A N/A N/A 3 14 Index 2.5 2.5 N/A N/A N/A N/A 5.2 2.2 Apneas & All Hypopneas Count 54 54 N/A N/A N/A N/A 22 32 Index 7.9 8 N/A N/A N/A N/A 38.3 5.1 Respiratory Events (Tooling Engineer+All Hyp+RERA) Count 54 61 N/A N/A N/A N/A 22 32 Index 8.9 9 N/A N/A N/A N/A 40.0 6.1 Respiratory Related Arousal Count 11 61 N/A N/A N/A N/A 4 11 Index 2.2 2 N/A N/A N/A N/A 7 2 Snoring Analysis Supine Right Left Prone REM NREM Total Snore duration 79.3 min Snores count 2,639 N/A N/A N/A 39 2,600 2,639 Snore mean duration 1.8 Sec Snores index 386 N/A N/A N/A 67.8 415.4 386.2 TST with snoring (%) 19.4% Desaturation Event Summary: Minimum %SpO2 Event Count Mean/Min/Max Duration(sec.) Desaturation Index % Time In Bed > 90 21 32.2 / 10.8 / 60.0 3.0 95.2 86 - 90 3 31.1 / 19.3 / 53.8 8.5 4.8 81 - 85 0 N/A 0.0 0.0 76 - 80 0 N/A 0.0 0.0 71 - 75 0 N/A 0.0 0.0 66 - 70 0 N/A 0.0 0.0 61 - 65 0 N/A 0.0 0.0 56 - 60 0 N/A 0.0 0.0 51 - 55 0 N/A 0.0 0.0 < 50 0 N/A 0.0 0.0 Total REM NREM Awake <50% 0.0 min. 0.0 min. 0.0 min. 0.0 min. 51 - 60% 0.0 min. 0.0 min. 0.0 min. 0.0 min. 61 - 70% 0.0 min. 0.0 min. 0.0 min. 0.0 min. 71 - 80% 0.0 min. 0.0 min. 0.0 min. 0.0 min. 81 - 90% 21.1 min. 0.1 min. 20.5 min. 0.5 min. 91 - 100% 414.6 min. 34.4 min. 355.0 min. 25.3 min. Average 93 94 93 94 Minimum SpO2 88 89 88 89 Desaturation Event Index 3.0 5.2 2.7 6.9 # Desat. Events below 89% 1 N/A 1 N/A Time(%) with Saturation below 89% 0.1 0.0 0.1 0.0 Time(min.) with Saturation below 89% 0.2 0.0 0.2 0.0 Time (mins) REM (mins) NREM (mins) % of TST SpO2 Below 90% 9 1 N8 0.4 SpO2 Below 88% 1 0 0 0 Heart Rate Analysis Min (bpm) Max (bpm) Average (bpm) Awake 55 91 71 NREM 54 92 67 REM 54 75 62 Overall 54 92 66 Supplemental O2 Values Minimum O2 level: None Value Start Time End Time Remote Advisor Comments Mrs. Ortiz slept in the supine position. No cardiac arrhythmia or PLMs noted. Alpha intrusion was noted. No bruxism noted. Snoring was noted and scored as a 4 on a scale of 0 through 5. (0=no snoring, 5=snoring loud enough to be heard through a closed door or down the witt way) Mrs. Ortiz did not wake to use the restroom during the night. Mrs. Ortiz stated, that was a rough night. The final report will be interpreted and signed by a sleep physician. The completed physician report will then be placed in the patient medical record. Therapy (cm H2O) 0 TIB (min.) 436.0 TST (min.) 410.0 Sleep Onset (min.) 6.5 REM Onset From Sleep (min.) 177.0 Sleep Efficiency % 94 Wakefulness (%) 6 Wakefulness (min.) 26.0 NREM 1 (%) 6 NREM 1 (min.) 25.5 NREM 2 (%) 77 NREM 2 (min.) 316.0 NREM 3 (%) 8 NREM 3 (min.) 34.0 REM (%) 8 REM (min.) 34.5 # Arousals 58 Arousal Index 8 # Snore 2,639 Snore Index 386.2 AHI 7.9 AHI Supine 8 AHI Non-Supine N/A NREM AHI 5.1 REM AHI 38.3 RDI 8.9 # Obstructive Apnea 35 # Central Apnea 2 # Mixed Apnea 0 # Hypopneas 17 RERAs 7 Total Respiratory Events 65 Time Below SpO2 89% (min.) 0.2 Mean NREM SpO2 (%) 93 Mean REM SpO2 (%) 94 Mean Sleep SpO2 (%) 93 Min NREM SpO2 (%) 88 Min REM SpO2 (%) 89 Position Supine (min.) 435.7 Position Non-supine (min.) 0.0 LM Index Sleep 5.1 LM Index NREM 4.2 LM Index REM 15.7 Mean Heart Rate (bpm) 66 Min Heart Rate (bpm) 54
--- NOTE | 2017-09-22 02:33 | POLYSOMNOGRAPH REPORT ---
CLINICAL DATA: A 51-year-old female with a BMI of 19.[address] Rivas with fatigue, snoring, and possible sleep apnea. She had a home sleep apnea test which showed an CHRISTINE of 2.8, but was felt to be inaccurate. SLEEP ARCHITECTURE: Total sleep period was 429 minutes. Total sleep time was 410 minutes divided between 375.5 minutes of non-REM sleep and 34.5 minutes of REM sleep. Sleep latency was 6.5 minutes. REM latency was 177 minutes. Sleep efficiency was 94%. Wake after sleep onset was 20.5 minutes. Sleep consisted of stage N1 6%, stage N2 77%, stage N3 8%, and REM 8%. AROUSAL DATA: 58 arousals were recorded for an index of 8 per hour. 21 were spontaneous. PLM DATA: 35 limb movements during sleep were noted for an index of 5.1 per hour with arousal index of 1.6 per hour. RESPIRATORY DATA: Mild sleep apnea was documented. The AHI was 7.9. The RDI was 8.9. There were 2 central and 35 obstructive apneic episodes. The longest apneic episode was 35.7 seconds. There were 17 hypopneic episodes with a mean duration of 27.7 seconds. There were 7 RERAs with the longest RERA being 34.6 seconds. OXIMETRY DATA: No significant hypoxemia was seen. Oxygen trevor was 88%. Mean saturation was 93%. EKG: Heart rates ranged from 54-92 beats per minute. No arrhythmias were noted. TRAINING DIRECTOR'S COMMENTS: The patient slept supine. Alpha intrusion was noted throughout. Snoring was severe, rated 4 on a scale of 1 through 5. IMPRESSION: Mild sleep apnea/hypopnea with an AHI of 7.9 and an RDI of 8.9 without nocturnal hypoxemia. RECOMMENDATIONS: The patient may benefit from use of an oral appliance or CPAP. Clinical correlation is needed. [facility]
== END | disposition home or self-care (01) ==
LOC: C.NEUR 21:00
DX: G47.33 Obstructive sleep apnea (adult) (pediatric) (principal)

== ENCOUNTER → 2017-09-29 | Outpatient (CLI) | payer OTHER ==
--- NOTE | 2017-09-29 21:44 | DIAGNOSTIC IMAGING REPORT ---
KUB CLINICAL HISTORY: 51 years-old Female presenting with UTI, LOW BACK PAIN. TECHNIQUE: Single supine view of the abdomen was obtained. COMPARISON: 05/13/2017. FINDINGS: Moderate stool burden. Nonobstructive bowel gas pattern. No gross pneumoperitoneum. Allowing for bowel gas and stool, no calcifications to suggest nephrolithiasis. Osseous structures normal. IMPRESSION: 1. No acute intra-abdominal pathology. 2. Moderate stool burden could suggest constipation. Electronically signed by: Alan Dykes M.D. 09/29/2017 9:43 PM Dictated Date/Time: 09/29/2017 9:41 PM
[2017-09-29 22:24] LABS: BASO % 0.5 %; BASO ABS # 0.03 K/uL (0-0.2); EOS % 2.4 %; EOS ABS # 0.15 K/uL (0-0.5); HEMATOCRIT 39.6 % (37-47); HEMOGLOBIN 13.4 g/dL (12.0-16.0); IG# 0.01 K/uL (0.00-0.02); LYMPH % 38.6 %; MEAN CELL VOLUME 85.3 fL (80-100); MEAN CORPUSCULAR HEMOGLOBIN 28.9 pg (25-34); MEAN CORPUSCULAR HGB CONC 33.8 g/dl (32-36); MONO % 7.7 %; MONO ABS # 0.48 K/uL (0.11-0.59); NEUT % 50.6 %; NEUT ABS # 3.15 K/uL (1.4-6.5); PLATELET COUNT 282 K/uL (130-400); RED CELL DISTRIBUTION WIDTH CV 11.8 % (11.5-14.5); RED CELL DISTRIBUTION WIDTH SD 36.5 fL (36.4-46.3); WHITE BLOOD COUNT 6.22 K/uL (4.8-10.8)
[2017-09-29 22:44] LABS: ALBUMIN 4.4 gm/dl (3.4-5.0); ALKALINE PHOSPHATASE 83 U/L (45-117); ALT/SGPT 18 U/L (12-78); AST/SGOT 20 U/L (15-37); BLOOD UREA NITROGEN 14 mg/dl (7-18); CALCIUM 9.4 mg/dl (8.5-10.1); CARBON DIOXIDE 31 mmol/L (21-32); GLUCOSE 89 mg/dl (70-99); POTASSIUM 3.7 mmol/L (3.5-5.1); SODIUM 137 mmol/L (136-145); TOTAL PROTEIN 8.3 gm/dl (6.4-8.2)
--- NOTE | 2017-09-30 07:34 | DIAGNOSTIC IMAGING REPORT ---
RENAL ULTRASOUND HISTORY: UTI, LOW BACK PAIN COMPARISON: Abdomen and pelvis CT 05/03/2017. FINDINGS: Right kidney: 10.5 cm. No hydronephrosis. Normal corticomedullary differentiation and cortical thickness. Left kidney: 10.5 cm. No hydronephrosis. Normal corticomedullary differentiation and cortical thickness. Bladder: Decompressed and not well visualized. IMPRESSION: 1. Normal kidneys. 2. Bladder was not well visualized. Electronically signed by: Ramses Jordan M.D. 09/30/2017 7:32 AM Dictated Date/Time: 09/30/2017 7:30 AM
== END | disposition home or self-care (01) ==
LOC: C.ULTR 20:47
PROVIDERS: ATTEND Family Medicine
DX: N39.0 Urinary tract infection, site not specified (principal); M54.5 Low back pain

== ENCOUNTER → 2017-12-03 | Outpatient (CLI) | payer OTHER ==
[~2017-12-03] MED LIST changes: -CLON0.5T3 PO; +KLN/5 PO
--- NOTE | 2017-12-03 15:59 | MAMMOGRAPHY REPORT ---
BILATERAL DIGITAL SCREENING MAMMOGRAM TOMOSYNTHESIS WITH CAD: 12/03/2017 CLINICAL HISTORY: Routine screening. Patient has no complaints. TECHNIQUE: The study was acquired using full field digital technology and interpreted from soft copy. Breast tomosynthesis in addition to standard 2D mammography was performed. Current study was also ev aluated with a Computer Aided Detection (CAD) system. COMPARISON: Comparison is made to exams dated: 11/28/2016 mammogram, 11/27/2015 mammogram, 11/24/2014 m ammogram, 11/18/2013 mammogram, 11/16/2012 mammogram, and 12/09/2016 mammogram - [facility]. BREAST COMPOSITION: The tissue of both breasts is heterogeneously dense, which may obscure small mass es. FINDINGS: No suspicious masses, calcifications, or areas of architectural distortion are noted in either breast . There has been no significant interval change compared to prior exams. Scattered bilateral benign-a ppearing calcifications are not significantly changed. IMPRESSION: ACR BI-RADS CATEGORY 2: BENIGN There is no mammographic evidence of malignancy. A 1 year screening mammogram is recommended.( [id number]) The patient will receive written notification of the results. Some breast cancers are not detected with mammography. A negative mammographic report should not [place] biopsy if a clinically suggestive mass is present. Clara Rachel M.D. ah/:12/03/2017 09:14:15 Senior Mobile Solutions Architect: RT Juan Antonio(Diane)(M), [facility] letter sent: Normal 1/2 BI-RADS Code: ACR BI-RADS Category 2: Benign
== END | disposition home or self-care (01) ==
LOC: C.MAMM 08:35
PROVIDERS: ATTEND Obstetrics & Gynecology
DX: Z12.31 Encounter for screening mammogram for malignant neoplasm of breast (principal)